=== PATIENT | female | born 1965 | race Caucasian/White ===

== ENCOUNTER 2018-12-25 12:12 | Outpatient (CLI) | payer OTHER ==
--- NOTE | 2018-12-25 13:10 | CT ---
NONCONTRAST ENHANCED CT CHEST LOW DOSE LUNG SCREENING SCAN: HISTORY: 53-year-old with 45 pack-year history of smoking. Comparison made to previous exam from 02/24/2014. Low dose CT chest scan performed. FINDINGS: Pleural-based nodular densities seen in the lateral aspect of the right lower lobe, axial image #180, as well as in the left lower lobe, axial image #166, and third lesion in the left lower lobe, axial image #176. The largest of these lesions has a diameter of approximately 12 mm. This is stable and unchanged sinc e previous exam from February 2014. Findings compatible with likely benign lesion. Findings suggest Lung-RADS category 2. Continue with annual screening low dose CT in 12 months. IMPRESSION: Lung-RADS category 2. 12 mm lesion stable for 2 years. Transcribed Date/Time: 12/25/2018 1:15 PM
== END 2018-12-25 12:13 | disposition home or self-care (01) ==
LOC: CT 12:12
PROVIDERS: ATTEND Internal Medicine Medical Oncology
DX: Z87.891 Personal history of nicotine dependence (principal); R91.1 Solitary pulmonary nodule
CPT/HCPCS: G0297

== ENCOUNTER 2022-08-05 16:34 | Inpatient (IN) | payer OTHER ==
[2022-08-05] MEDS ORDERED: Ondansetron ODT 4 MG TAB PO PRN (20:56)
[2022-08-05] MEDS ORDERED: Acetaminophen 325 MG TAB PO PRN (20:56)
[2022-08-05] MEDS ORDERED: HYDROcodone/Acetaminophen 5/325 mg Tablet PO PRN (20:56)
[2022-08-05] MEDS ORDERED: Dextrose 5% in Water 1,000 ML IV PRN (20:56)
[2022-08-05] MEDS ORDERED: Ondansetron PF 4 MG/2 ML Vial IVP PRN (20:56)
[2022-08-05] MEDS ORDERED: Dextrose 50% Abboject 50 ML SYRINGE SLOW IVP PRN (20:56)
[2022-08-05] MEDS ORDERED: HumaLOG 300 UNITS/3 ML VIAL SC PRN ×2 (21:00)
[2022-08-05] MEDS ORDERED: Ipratropium/Albuterol 3 ML NEB NEB PRN (21:01)
[2022-08-05] MEDS ORDERED: Benzonatate 100 MG CAP PO PRN (21:45)
[2022-08-05] MEDS ORDERED: GUAIFENESIN SF SOLN 200 MG/10 ML UDCUP PO PRN (21:45)
[2022-08-05] MEDS ORDERED: Magnesium 2 GM/50 ML(in water) 2 GM in Premix Bag 1 BAG IVPB SCH (22:00)
[2022-08-05 23:11] VITALS: BMI 29.2
[2022-08-05] MEDS: Azithromycin 500 MG in Sodium Chloride 0.9% 250 ML 250 ML IVPB SCH (23:21)
[2022-08-05] MEDS: methylPREDNISolone Sod Succ 40 MG VIAL IVP SCH (23:24)
[2022-08-05] MEDS: Nicotine 14 MG PATCH TD SCH (23:25)
[2022-08-05 23:55] LABS: Lactic Acid 3.7 mmol/L (0.5-2.2)
[2022-08-06 00:01] LABS: ALT (SGPT) 9 U/L (8-55); AST (SGOT) 15 U/L (5-34); Albumin 2.4 g/dL (3.5-5.0); Alkaline Phosphatase 64 U/L (40-110); Anion Gap 23 mmol/L (10-20); BUN (Urea Nitrogen) 35 mg/dL (9.8-20.1); Bilirubin, Total 0.5 mg/dL (0.2-1.2); Calc. Creatinine Clearance 51 mL/min (70-130); Calcium 12.1 mg/dL (7.8-10.44); Carbon Dioxide 29 mmol/L (22-29); Chloride 83 mmol/L (98-107); Estimated GFR 41; Globulin 7.8 g/dL (2.4-3.5); Glucose 222 mg/dL (70-105); Potassium 3.4 mmol/L (3.5-5.1); Protein, Total 10.2 g/dL (6.0-8.3); Sodium 132 mmol/L (136-145)
[2022-08-06] MEDS: methylPREDNISolone Sod Succ 40 MG VIAL IVP SCH ×3 (05:34→21:20)
[2022-08-06 05:49] LABS: #Lymphocytes 0.8 thou/uL (1.20-3.40); #Monocytes 0.2 thou/uL (0.11-0.59); #Neutrophils 7.8 thou/uL (1.40-6.50); %Eosinophils 0.1 % (0.0-10.0); %Lymphocytes 9.4 % (21.0-51.0); %Monocytes 2.7 % (0.0-10.0); %Neutrophils 87.8 % (42.0-75.0); Hemoglobin 12.4 g/dL (12.0-16.0); Mean Corpuscular HGB CONC 33.3 g/dL (32.0-36.0); Mean Corpuscular Hemoglobin 30.6 pg (27.0-31.0); Mean Corpuscular Volume 91.8 fl (78.0-98.0); Mean Platelet Volume 8.9 fL (7.4-10.4); Platelet Count 166 10x3/uL (130-400); Red Blood Cell (RBC) Count 4.04 mill/uL (4.20-5.40); White Blood Cell (WBC) Count 8.8 10x3/uL (4.8-10.8)
[2022-08-06 06:07] LABS: ALT (SGPT) Less than 7 U/L (8-55); AST (SGOT) 16 U/L (5-34); Albumin 2.5 g/dL (3.5-5.0); Alkaline Phosphatase 66 U/L (40-110); Anion Gap 20 mmol/L (10-20); BUN (Urea Nitrogen) 32 mg/dL (9.8-20.1); Bilirubin, Total 0.5 mg/dL (0.2-1.2); Calc. Creatinine Clearance 60 mL/min (70-130); Calcium 11.8 mg/dL (7.8-10.44); Carbon Dioxide 29 mmol/L (22-29); Chloride 86 mmol/L (98-107); Estimated GFR 49; Globulin 7.7 g/dL (2.4-3.5); Glucose 161 mg/dL (70-105); Potassium 3.3 mmol/L (3.5-5.1); Protein, Total 10.2 g/dL (6.0-8.3); Sodium 132 mmol/L (136-145)
[2022-08-06] MEDS ORDERED: Furosemide 40 MG TAB PO SCH (15:00)
[2022-08-06] MEDS ORDERED: Polyethylene Glycol 3350 17 GM Packet PO PRN (17:58)
[2022-08-06] MEDS: Senokot S 8.6-50 MG TAB PO SCH (21:20)
[2022-08-06] MEDS: hydrALAZINE 25 MG TAB PO SCH (21:21)
[2022-08-06] MEDS: carBAMazepine SR 300 mg Capsule PO SCH (21:21)
[2022-08-06] MEDS: Azithromycin 500 MG in Sodium Chloride 0.9% 250 ML 250 ML IVPB SCH (21:24)
[2022-08-06] MEDS: Furosemide 40 MG TAB PO SCH (21:34)
[2022-08-06] MEDS: Nicotine 14 MG PATCH TD SCH (21:34)
[2022-08-07] MEDS ORDERED: Mometasone 100 MCG/Formoterol 5 MCG 120 PUFF INHALER INH SCH (06:30)
[2022-08-07] MEDS ORDERED: Empagliflozin 25 MG TAB PO SCH (07:30)
[2022-08-07] MEDS: hydrALAZINE 25 MG TAB PO SCH (08:40)
[2022-08-07] MEDS: carBAMazepine SR 300 mg Capsule PO SCH (08:40)
[2022-08-07] MEDS: Furosemide 40 MG TAB PO SCH (08:41)
[2022-08-07] MEDS: Senokot S 8.6-50 MG TAB PO SCH (08:41)
[2022-08-07] MEDS: methylPREDNISolone Sod Succ 40 MG VIAL IVP SCH (08:42)
[2022-08-07 08:43] VITALS: BP 131/69
[2022-08-07] MEDS ORDERED: Venlafaxine HCl XR 75 MG CAP PO SCH (09:00)
[2022-08-07] MEDS ORDERED: Potassium Chloride 20 MEQ TAB PO SCH (09:00)
[2022-08-07 09:13] VITALS: TEMP 98.1
== END 2022-08-07 11:29 | disposition home or self-care (01) | DRG 189 ==
LOC: SURG B 16:34 → OBSVTOIN 08-06 15:13
PROVIDERS: ADMIT Internal Medicine; ATTEND Family Medicine
DX: J96.01 Acute respiratory failure with hypoxia (principal); J44.1 Chronic obstructive pulmonary disease with (acute) exacerbation; E87.20 Acidosis, unspecified; I50.32 Chronic diastolic (congestive) heart failure; N17.9 Acute kidney failure, unspecified; E11.9 Type 2 diabetes mellitus without complications; F31.9 Bipolar disorder, unspecified; F17.210 Nicotine dependence, cigarettes, uncomplicated; E87.6 Hypokalemia; I11.0 Hypertensive heart disease with heart failure; E78.5 Hyperlipidemia, unspecified; K21.9 Gastro-esophageal reflux disease without esophagitis; Z20.822 Contact with and (suspected) exposure to COVID-19; Z79.51 Long term (current) use of inhaled steroids; Z79.899 Other long term (current) drug therapy; Z98.890 Other specified postprocedural states; Z90.49 Acquired absence of other specified parts of digestive tract; Z88.0 Allergy status to penicillin; Z90.710 Acquired absence of both cervix and uterus
CPT/HCPCS: 36415; 36416; 80053; 83605; 85025; 96372; 96375; 96376; G0378; J0456; J1650; J2920; J3475; J7050

== ENCOUNTER 2022-11-07 20:49 | Observation (INO) | payer OTHER ==
[2022-11-07] MEDS ORDERED: Dextrose 5% in Water 1,000 ML IV PRN (22:25)
[2022-11-07] MEDS ORDERED: Dextrose 50% Abboject 50 ML SYRINGE SLOW IVP PRN (22:25)
[2022-11-07] MEDS ORDERED: Bisacodyl 5 MG TAB PO PRN (22:25)
[2022-11-07] MEDS ORDERED: Bisacodyl 10 MG SUPP PR PRN (22:25)
[2022-11-07] MEDS ORDERED: HumaLOG 300 UNITS/3 ML VIAL SC PRN ×2 (22:27)
[2022-11-07] MEDS ORDERED: Ipratropium/Albuterol 3 ML NEB NEB PRN (22:30)
[2022-11-07] MEDS ORDERED: Albuterol 200 PUFF (6.7GM INHALER) INH PRN (22:37)
[2022-11-08 01:42] LABS: Hemoglobin 6.9 g/dL (12.0-16.0); Platelet Count 129 10x3/uL (130-400)
[2022-11-08 01:59] LABS: ALT (SGPT) Less than 7 U/L (8-55); AST (SGOT) 16 U/L (5-34); Albumin 1.7 g/dL (3.5-5.0); Alkaline Phosphatase 166 U/L (40-110); Bilirubin, Direct 0.9 mg/dL (0.1-0.3); Bilirubin, Total 1.1 mg/dL (0.2-1.2); Protein, Total 10.3 g/dL (6.0-8.3)
[2022-11-08] MEDS: Acetaminophen 325 MG TAB PO PRN ×2 (02:38→07:59)
[2022-11-08] MEDS ORDERED: Gabapentin 100 MG CAP PO SCH (05:30)
[2022-11-08 08:26] LABS: INR-International Normal Ratio 1.8
[2022-11-08 08:27] LABS: PTT 42.9 sec (22.9-36.1)
[2022-11-08 08:31] LABS: Anion Gap 22 mmol/L (10-20); BUN (Urea Nitrogen) 29 mg/dL (9.8-20.1); Calc. Creatinine Clearance 18 mL/min (70-130); Carbon Dioxide 26 mmol/L (22-29); Chloride 87 mmol/L (98-107); Estimated GFR 12; Glucose 108 mg/dL (70-105); Potassium 3.8 mmol/L (3.5-5.1); Sodium 131 mmol/L (136-145)
[2022-11-08 08:39] LABS: Hemoglobin 6.4 g/dL (12.0-16.0); Mean Corpuscular Hemoglobin 32.2 pg (27.0-31.0); Mean Corpuscular Volume 97.8 fl (78.0-98.0); Mean Platelet Volume 7.8 fL (7.4-10.4); Platelet Count 133 10x3/uL (130-400); RBC Distribution Width 19.1 % (11.5-14.5); Red Blood Cell (RBC) Count 1.98 mill/uL (4.20-5.40); White Blood Cell (WBC) Count 4.3 10x3/uL (4.8-10.8)
[2022-11-08 08:47] LABS: HBSAB Concentration Less than 8.00 mIU/mL; HBSAg Index 0.25 S/CO (0-0.99); Hep B Core Total Ab Non-Reactive (NonReactive); Hep B Surf AB Non-Reactive (NonReactive); Hep B Surf Ag Non-Reactive S/CO (NonReactive); Hep C IgG Ab Non-Reactive S/CO (NonReactive); Hep C Index 0.03 S/CO (0-0.79)
[2022-11-08 08:48] LABS: Hep B Core Total Index 0.02 S/CO (0-0.79)
[2022-11-08] MEDS ORDERED: Senokot S 8.6-50 MG TAB PO SCH (09:00)
[2022-11-08] MEDS ORDERED: Metoprolol Tartrate 25 MG TAB PO SCH (09:00)
[2022-11-08 09:07] LABS: Band 19 % (5-11); Differential Comment Plasma-cytoid Cells; Eosinophils 1 % (0-10); Lymphocytes 18 % (21-51); MDiff Complete? YES; Monocytes 7 % (0-10); Neutrophil 51 % (42-75); Nucleated RBC (Manual Ct) 4 % (0); Other Cell Types 2; Platelet Morphology Comment Appears Adequate; Reactive Lymphocytes 2 % (0-10); Reflex for Review?? YES; Rouleaux Formation MODERATE= 6-15 cells (100X) (None Seen)
[2022-11-08] MEDS ORDERED: EPOETIN ALFA-EPBX (ESRD) 10,000 UNITS/ML VIAL IVP SCH (12:30)
[2022-11-08 13:15] LABS: Hemoglobin 7.6 g/dL (12.0-16.0); Platelet Count 130 10x3/uL (130-400)
[2022-11-08 15:45] VITALS: BP 112/56; TEMP 97.7
== END 2022-11-08 16:22 | disposition home or self-care (01) ==
LOC: 2SW 21:24
PROVIDERS: ADMIT Emergency Medicine; ATTEND Emergency Medicine
DX: I12.0 Hypertensive chronic kidney disease with stage 5 chronic kidney disease or end stage renal disease (principal); E11.22 Type 2 diabetes mellitus with diabetic chronic kidney disease; N18.6 End stage renal disease; D63.1 Anemia in chronic kidney disease; J44.9 Chronic obstructive pulmonary disease, unspecified; G47.33 Obstructive sleep apnea (adult) (pediatric); E78.5 Hyperlipidemia, unspecified; F17.210 Nicotine dependence, cigarettes, uncomplicated; D68.9 Coagulation defect, unspecified; Z79.01 Long term (current) use of anticoagulants; Z79.899 Other long term (current) drug therapy; Z88.0 Allergy status to penicillin; Z99.2 Dependence on renal dialysis
CPT/HCPCS: 36415; 36416; 36430; 80048; 80076; 85014; 85018; 85025; 85049; 85060; 85610; 85730; 86704; 86850; 86900; 86901; 86921; 90935; G0257; G0378; P9016

== ENCOUNTER 2022-11-14 13:05 | Inpatient (IN) | payer OTHER ==
[2022-11-14 16:07] LABS: CKMB 0.7 ng/mL (0-6.6)
[2022-11-14 17:52] VITALS: BMI 30.6
[2022-11-14] MEDS ORDERED: Dextrose 5% in Water 1,000 ML IV PRN (18:00)
[2022-11-14] MEDS ORDERED: Senokot S 8.6-50 MG TAB PO PRN (18:00)
[2022-11-14] MEDS ORDERED: Guaifenesin DM 100-10/5 ML UDCUP PO PRN (18:00)
[2022-11-14] MEDS ORDERED: Ondansetron ODT 4 MG TAB PO PRN (18:00)
[2022-11-14] MEDS ORDERED: Acetaminophen 325 MG TAB PO PRN (18:00)
[2022-11-14] MEDS ORDERED: Acetaminophen 650 MG Suppository PR PRN (18:00)
[2022-11-14] MEDS ORDERED: Dextrose 50% Abboject 50 ML SYRINGE SLOW IVP PRN (18:00)
[2022-11-14] MEDS ORDERED: Ipratropium/Albuterol 3 ML NEB NEB PRN (18:00)
[2022-11-14] MEDS ORDERED: Ondansetron PF 4 MG/2 ML Vial IVP PRN (18:00)
[2022-11-14] MEDS ORDERED: Vancomycin HCl 500 MG in Sodium Chloride 0.9% 100 ML IVPB SCH (19:00)
[2022-11-14] MEDS ORDERED: Vancomycin Hemodialysis Sliding Scale FS SCH (19:00)
[2022-11-14 19:11] LABS: Critical Call Chem Troponin I RESULT DECREASING; Troponin I 0.226 ng/mL (< 0.028)
[2022-11-14] MEDS: Famotidine 20 MG TAB PO SCH (20:38)
[2022-11-14] MEDS: Metoprolol Tartrate 25 MG TAB PO SCH (20:38)
[2022-11-14] MEDS ORDERED: Apixaban 5 MG TAB PO SCH (21:00)
[2022-11-14 21:01] LABS: Critical Call Chem Troponin I RESULT DECREASING; Troponin I 0.209 ng/mL (< 0.028)
[2022-11-14] MEDS ORDERED: Albumin 25% 25 GM/100 ML BOT IVPB SCH (21:45)
[2022-11-15 04:59] LABS: Anion Gap 23 mmol/L (10-20); BUN (Urea Nitrogen) 13 mg/dL (9.8-20.1); Calc. Creatinine Clearance 33 mL/min (70-130); Calcium 9.2 mg/dL (7.8-10.44); Carbon Dioxide 21 mmol/L (22-29); Chloride 92 mmol/L (98-107); Estimated GFR 23; Glucose 111 mg/dL (70-105); Potassium 3.9 mmol/L (3.5-5.1); Sodium 132 mmol/L (136-145)
[2022-11-15 05:13] LABS: #Monocytes 0.3 thou/uL (0.11-0.59); #Neutrophils 1.8 thou/uL (1.40-6.50); Hemoglobin 6.1 g/dL (12.0-16.0); Mean Corpuscular HGB CONC 30.9 g/dL (32.0-36.0); Mean Corpuscular Hemoglobin 30.9 pg (27.0-31.0); Mean Platelet Volume 8.9 fL (7.4-10.4); Platelet Count 59 10x3/uL (130-400); RBC Distribution Width 19.9 % (11.5-14.5); Red Blood Cell (RBC) Count 1.96 mill/uL (4.20-5.40); White Blood Cell (WBC) Count 3.3 10x3/uL (4.8-10.8)
[2022-11-15 05:14] LABS: Band 4 % (5-11); Eosinophils 1 % (0-10); Lymphocytes 26 % (21-51); MDiff Complete? YES; Monocytes 12 % (0-10); Neutrophil 55 % (42-75); Nucleated RBC (Manual Ct) 5 % (0); Platelet Morphology Comment Appears Decreased; Polychromasia SLIGHT = 2-3 cells (100X) (0-2/hpf); Reactive Lymphocytes 2 % (0-10); Rouleaux Formation SLIGHT = 1-5 cells (100X) (None Seen)
[2022-11-15 08:24] LABS: Vancomycin, Random 15.5 ug/mL (See Comment)
[2022-11-15] MEDS ORDERED: Heparin 10,000 UNITS/ 10 ML VIAL ONE (08:27)
[2022-11-15] MEDS: Metoprolol Tartrate 25 MG TAB PO SCH ×2 (08:45→21:39)
[2022-11-15] MEDS ORDERED: Vancomycin 1 GM in Premix Bag 1 BAG IVPB SCH (09:00)
[2022-11-15 14:38] LABS: Hemoglobin 8.2 g/dL (12.0-16.0)
[2022-11-15 16:33] LABS: Actual Bicarbonate (HCO3a) 30.6 mEq/L (22-28); CO2 Tension 50.8 mmHg (35.0-45.0); Calcium, Ionized (arterial) 1.26 mmol/L (1.12-1.30); Carboxyhemoglobin (COHb) 1.5 gm% (0.0-3.0); Hematocrit-ABG 27 % (36.0-47.0); Hemoglobin (Hb) 9.2 g/dL (12.0-16.0); O2 Tension (PaO2), arterial 78.3 mmHg (80.0-100.0); Potassium - ABG Lab 3.29 mmol/L (3.70-5.30); pH, Arterial 7.398 (7.35-7.45)
[2022-11-15 16:38] LABS: Puncture Site LRA
[2022-11-15] MEDS ORDERED: Vancomycin HCl 750 MG in Sodium Chloride 0.9% 250 ML 250 ML IVPB SCH (17:00)
[2022-11-15] MEDS: Cefepime 0.5 GM, Admixture Fee 1 EACH in Sodium Chloride 0.9% 100 ML IVPB SCH (17:17)
[2022-11-15] MEDS: Famotidine 20 MG TAB PO SCH (21:39)
[2022-11-15 22:39] LABS: Immunoglob - A (Total IgA) Greater than 6300.00 mg/dL (65-421)
[2022-11-16 05:12] LABS: Anion Gap 21 mmol/L (10-20); BUN (Urea Nitrogen) 12 mg/dL (9.8-20.1); Calc. Creatinine Clearance 34 mL/min (70-130); Calcium 10.2 mg/dL (7.8-10.44); Carbon Dioxide 23 mmol/L (22-29); Chloride 94 mmol/L (98-107); Estimated GFR 24; Glucose 134 mg/dL (70-105); Potassium 3.8 mmol/L (3.5-5.1); Sodium 134 mmol/L (136-145)
[2022-11-16 08:39] LABS: Band 8 % (5-11); Eosinophils 2 % (0-10); Hemoglobin 7.6 g/dL (12.0-16.0); Lymphocytes 26 % (21-51); MDiff Complete? YES; Mean Corpuscular HGB CONC 30.1 g/dL (32.0-36.0); Mean Corpuscular Hemoglobin 29.3 pg (27.0-31.0); Mean Corpuscular Volume 97.4 fl (78.0-98.0); Mean Platelet Volume 9.3 fL (7.4-10.4); Monocytes 8 % (0-10); Neutrophil 52 % (42-75); Nucleated RBC (Manual Ct) 4 % (0); Platelet Count 66 10x3/uL (130-400); Platelet Morphology Comment Appears Decreased; Polychromasia SLIGHT = 2-3 cells (100X) (0-2/hpf); RBC Distribution Width 23.3 % (11.5-14.5); Reactive Lymphocytes 2 % (0-10); Red Blood Cell (RBC) Count 2.59 mill/uL (4.20-5.40); Rouleaux Formation MARKED = >16 cells (100X) (None Seen); White Blood Cell (WBC) Count 3.2 10x3/uL (4.8-10.8)
[2022-11-16] MEDS ORDERED: Dexamethasone 40 MG in Sodium Chloride 0.9% 50 ML IVPB SCH (09:00)
[2022-11-16] MEDS: Metoprolol Tartrate 25 MG TAB PO SCH ×2 (09:05→20:24)
[2022-11-16] MEDS: HumaLOG 300 UNITS/3 ML VIAL SC PRN ×3 (12:02→21:17)
[2022-11-16] MEDS: Cefepime 0.5 GM, Admixture Fee 1 EACH in Sodium Chloride 0.9% 100 ML IVPB SCH (16:50)
[2022-11-16] MEDS: Famotidine 20 MG TAB PO SCH (20:24)
[2022-11-17] MEDS: HumaLOG 300 UNITS/3 ML VIAL SC PRN ×2 (06:05→20:18)
[2022-11-17 07:41] LABS: Vancomycin, Random 17.8 ug/mL (See Comment)
[2022-11-17 08:51] LABS: #Monocytes 0.4 thou/uL (0.11-0.59); #Neutrophils 3.5 thou/uL (1.40-6.50); %Basophils 0.6 % (0.0-1.0); %Eosinophils 0.1 % (0.0-10.0); %Lymphocytes 19.9 % (21.0-51.0); %Monocytes 8.9 % (0.0-10.0); %Neutrophils 70.5 % (42.0-75.0); Hemoglobin 8.6 g/dL (12.0-16.0); Mean Corpuscular Hemoglobin 32.4 pg (27.0-31.0); Mean Corpuscular Volume 98.1 fl (78.0-98.0); Mean Platelet Volume 9.8 fL (7.4-10.4); Platelet Count 59 10x3/uL (130-400); RBC Distribution Width 22.4 % (11.5-14.5); Red Blood Cell (RBC) Count 2.66 mill/uL (4.20-5.40); White Blood Cell (WBC) Count 4.9 10x3/uL (4.8-10.8)
[2022-11-17 09:20] LABS: ALT (SGPT) 8 U/L (8-55); AST (SGOT) 12 U/L (5-34); Albumin 1.8 g/dL (3.5-5.0); Alkaline Phosphatase 171 U/L (40-110); Anion Gap 22 mmol/L (10-20); BUN (Urea Nitrogen) 28 mg/dL (9.8-20.1); Bilirubin, Total 1.3 mg/dL (0.2-1.2); Calc. Creatinine Clearance 21 mL/min (70-130); Calcium 10.6 mg/dL (7.8-10.44); Carbon Dioxide 21 mmol/L (22-29); Chloride 89 mmol/L (98-107); Estimated GFR 14; Globulin 8.7 g/dL (2.4-3.5); Glucose 197 mg/dL (70-105); Potassium 4.3 mmol/L (3.5-5.1); Protein, Total 10.5 g/dL (6.0-8.3); Sodium 128 mmol/L (136-145)
[2022-11-17 09:29] LABS: MDiff Complete? YES; Macrocytosis SLIGHT = 6-15 cells (100X) (0-5/hpf); Platelet Morphology Comment Appears Decreased; Polychromasia SLIGHT = 2-3 cells (100X) (0-2/hpf); Rouleaux Formation MARKED = >16 cells (100X) (None Seen)
[2022-11-17] MEDS ORDERED: Vancomycin Diaylsis Sliding Scale (Wt 71-99) FS SCH (11:15)
[2022-11-17] MEDS: Dexamethasone 40 MG in Sodium Chloride 0.9% 50 ML IVPB SCH (15:11)
[2022-11-17] MEDS: Metoprolol Tartrate 25 MG TAB PO SCH ×2 (15:11→20:15)
[2022-11-17 16:38] LABS: Kappa Light Chains 10.8 mg/L (3.3-19.4); Lambda Light Chain 2891.3 mg/L (5.7-26.3)
[2022-11-17] MEDS ORDERED: Vancomycin HCl 750 MG in Sodium Chloride 0.9% 250 ML 250 ML IVPB SCH (17:00)
[2022-11-17] MEDS: Cefepime 0.5 GM, Admixture Fee 1 EACH in Sodium Chloride 0.9% 100 ML IVPB SCH (17:55)
[2022-11-17] MEDS: Famotidine 20 MG TAB PO SCH (20:15)
[2022-11-17 23:32] LABS: Hemoglobin 8.5 g/dL (12.0-16.0); Mean Corpuscular HGB CONC 33.4 g/dL (32.0-36.0); Mean Corpuscular Hemoglobin 32.6 pg (27.0-31.0); Mean Corpuscular Volume 97.6 fl (78.0-98.0); Mean Platelet Volume 8.9 fL (7.4-10.4); Platelet Count 64 10x3/uL (130-400); RBC Distribution Width 22.4 % (11.5-14.5); Red Blood Cell (RBC) Count 2.61 mill/uL (4.20-5.40)
[2022-11-17 23:53] LABS: Anisocytosis MODERATE=16-30 cells (100X) (0-5/hpf); Lymphocytes 12 % (21-51); MDiff Complete? YES; Metamyelocyte 1 % (0-0); Monocytes 3 % (0-10); Neutrophil 84 % (42-75); Nucleated RBC (Manual Ct) 2 % (0); Platelet Morphology Comment Appears Decreased; Polychromasia SLIGHT = 2-3 cells (100X) (0-2/hpf); White Blood Cell (WBC) Count 4.5 10x3/uL (4.8-10.8)
[2022-11-17 23:55] LABS: ALT (SGPT) 8 U/L (8-55); AST (SGOT) 13 U/L (5-34); Albumin 1.9 g/dL (3.5-5.0); Alkaline Phosphatase 166 U/L (40-110); Anion Gap 21 mmol/L (10-20); BUN (Urea Nitrogen) 19 mg/dL (9.8-20.1); Bilirubin, Total 1.2 mg/dL (0.2-1.2); Calc. Creatinine Clearance 28 mL/min (70-130); Carbon Dioxide 23 mmol/L (22-29); Chloride 91 mmol/L (98-107); Estimated GFR 19; Globulin 8.9 g/dL (2.4-3.5); Glucose 262 mg/dL (70-105); Potassium 4.4 mmol/L (3.5-5.1); Protein, Total 10.8 g/dL (6.0-8.3); Sodium 131 mmol/L (136-145)
[2022-11-18 05:03] LABS: ALT (SGPT) 9 U/L (8-55); AST (SGOT) 12 U/L (5-34); Albumin 1.8 g/dL (3.5-5.0); Alkaline Phosphatase 158 U/L (40-110); Anion Gap 19 mmol/L (10-20); BUN (Urea Nitrogen) 22 mg/dL (9.8-20.1); Bilirubin, Total 1.1 mg/dL (0.2-1.2); Calc. Creatinine Clearance 26 mL/min (70-130); Calcium 10.1 mg/dL (7.8-10.44); Carbon Dioxide 24 mmol/L (22-29); Chloride 91 mmol/L (98-107); Estimated GFR 18; Globulin 8.7 g/dL (2.4-3.5); Glucose 268 mg/dL (70-105); Potassium 4.3 mmol/L (3.5-5.1); Protein, Total 10.5 g/dL (6.0-8.3); Sodium 130 mmol/L (136-145)
[2022-11-18 05:32] LABS: Hemoglobin 7.9 g/dL (12.0-16.0); Mean Corpuscular HGB CONC 30.2 g/dL (32.0-36.0); Mean Corpuscular Hemoglobin 29.9 pg (27.0-31.0); Mean Corpuscular Volume 99.1 fl (78.0-98.0); Mean Platelet Volume 9.2 fL (7.4-10.4); Platelet Count 57 10x3/uL (130-400); RBC Distribution Width 22.3 % (11.5-14.5); Red Blood Cell (RBC) Count 2.63 mill/uL (4.20-5.40)
[2022-11-18] MEDS: HumaLOG 300 UNITS/3 ML VIAL SC PRN ×3 (05:38→21:07)
[2022-11-18 08:09] LABS: Anisocytosis SLIGHT = 6-15 cells (100X) (0-5/hpf); Band 15 % (5-11); Hypochromia SLIGHT = 6-15 cells (100X) (0-5/hpf); Lymphocytes 13 % (21-51); MDiff Complete? YES; Monocytes 6 % (0-10); Neutrophil 63 % (42-75); Nucleated RBC (Manual Ct) 1 % (0); Platelet Morphology Comment Appears Decreased; Polychromasia SLIGHT = 2-3 cells (100X) (0-2/hpf); Reactive Lymphocytes 3 % (0-10); Rouleaux Formation MARKED = >16 cells (100X) (None Seen); White Blood Cell (WBC) Count 5.4 10x3/uL (4.8-10.8)
[2022-11-18] MEDS: Metoprolol Tartrate 25 MG TAB PO SCH ×2 (09:14→21:07)
[2022-11-18] MEDS: Dexamethasone 40 MG in Sodium Chloride 0.9% 50 ML IVPB SCH (09:14)
[2022-11-18] MEDS: Cefepime 0.5 GM, Admixture Fee 1 EACH in Sodium Chloride 0.9% 100 ML IVPB SCH (16:35)
[2022-11-18] MEDS: Famotidine 20 MG TAB PO SCH (21:07)
[2022-11-19 05:15] LABS: #Lymphocytes 0.9 thou/uL (1.20-3.40); #Monocytes 0.5 thou/uL (0.11-0.59); #Neutrophils 5.2 thou/uL (1.40-6.50); %Eosinophils 0.1 % (0.0-10.0); %Lymphocytes 13.9 % (21.0-51.0); %Monocytes 7.5 % (0.0-10.0); %Neutrophils 78.5 % (42.0-75.0); Hemoglobin 8.8 g/dL (12.0-16.0); Mean Corpuscular HGB CONC 32.6 g/dL (32.0-36.0); Mean Corpuscular Hemoglobin 32.2 pg (27.0-31.0); Mean Corpuscular Volume 98.7 fl (78.0-98.0); Mean Platelet Volume 9.6 fL (7.4-10.4); Platelet Count 65 10x3/uL (130-400); RBC Distribution Width 22.1 % (11.5-14.5); Red Blood Cell (RBC) Count 2.72 mill/uL (4.20-5.40); White Blood Cell (WBC) Count 6.6 10x3/uL (4.8-10.8)
[2022-11-19] MEDS: HumaLOG 300 UNITS/3 ML VIAL SC PRN ×2 (06:39→18:06)
[2022-11-19] MEDS: Dexamethasone 40 MG in Sodium Chloride 0.9% 50 ML IVPB SCH (09:24)
[2022-11-19] MEDS: Metoprolol Tartrate 25 MG TAB PO SCH ×2 (09:24→20:05)
[2022-11-19 14:13] LABS: A/G Ratio 0.4 (0.7-1.7); Albumin 2.9 g/dL (2.9-4.4); Alpha 1 0.4 g/dL (0.0-0.4); Alpha 2 0.6 g/dL (0.4-1.0); Gamma 0.3 g/dL (0.4-1.8); Globulin, Total 7.3 g/dL (2.2-3.9); M-Spike 5.7 g/dL (Not Observed); Protein Electrophoresis Intrp Note: (.)
[2022-11-19] MEDS: Cefepime 0.5 GM, Admixture Fee 1 EACH in Sodium Chloride 0.9% 100 ML IVPB SCH (16:43)
[2022-11-19] MEDS: Famotidine 20 MG TAB PO SCH (20:05)
[2022-11-20] MEDS ORDERED: Nitroglycerin 0.4 MG TAB (25 Tab Bottle) SL PRN (00:31)
[2022-11-20 01:14] LABS: Troponin I 0.109 ng/mL (< 0.028)
[2022-11-20 05:08] LABS: #Monocytes 0.5 thou/uL (0.11-0.59); %Basophils 0.3 % (0.0-1.0); %Eosinophils 0.1 % (0.0-10.0); %Lymphocytes 13.4 % (21.0-51.0); %Monocytes 6.6 % (0.0-10.0); Hemoglobin 8.6 g/dL (12.0-16.0); Mean Corpuscular HGB CONC 30.6 g/dL (32.0-36.0); Mean Corpuscular Hemoglobin 29.6 pg (27.0-31.0); Mean Corpuscular Volume 96.6 fl (78.0-98.0); RBC Distribution Width 25.3 % (11.5-14.5); Red Blood Cell (RBC) Count 2.91 mill/uL (4.20-5.40); White Blood Cell (WBC) Count 6.8 10x3/uL (4.8-10.8)
[2022-11-20 05:16] LABS: Platelet Count 77 10x3/uL (130-400)
[2022-11-20 05:33] LABS: ALT (SGPT) 8 U/L (8-55); AST (SGOT) 14 U/L (5-34); Albumin 1.9 g/dL (3.5-5.0); Alkaline Phosphatase 130 U/L (40-110); Anion Gap 22 mmol/L (10-20); BUN (Urea Nitrogen) 51 mg/dL (9.8-20.1); Bilirubin, Total 1.2 mg/dL (0.2-1.2); Calc. Creatinine Clearance 17 mL/min (70-130); Calcium 10.5 mg/dL (7.8-10.44); Carbon Dioxide 23 mmol/L (22-29); Chloride 89 mmol/L (98-107); Estimated GFR 10; Globulin 8.9 g/dL (2.4-3.5); Glucose 167 mg/dL (70-105); Potassium 5.1 mmol/L (3.5-5.1); Protein, Total 10.8 g/dL (6.0-8.3); Sodium 129 mmol/L (136-145)
[2022-11-20] MEDS: HumaLOG 300 UNITS/3 ML VIAL SC PRN ×3 (06:25→20:25)
[2022-11-20] MEDS ORDERED: Albumin 25% 25 GM/100 ML BOT IVPB SCH (11:00)
[2022-11-20] MEDS ORDERED: EPOETIN ALFA-EPBX (ESRD) 10,000 UNITS/ML VIAL IVP SCH (11:00)
[2022-11-20] MEDS: Dexamethasone 40 MG in Sodium Chloride 0.9% 50 ML IVPB SCH (13:20)
[2022-11-20] MEDS: Metoprolol Tartrate 25 MG TAB PO SCH ×2 (13:20→20:25)
[2022-11-20] MEDS: Sodium Chloride 0.9% 1,000 ML IV SCH (14:17)
[2022-11-20] MEDS: cefTRIAXone\\ROCEPHIN 2 GM in Sodium Chloride 0.9% 100 ML IVPB SCH (16:36)
[2022-11-20] MEDS ORDERED: Vancomycin HCl 750 MG in Sodium Chloride 0.9% 250 ML 250 ML IVPB SCH (17:00)
[2022-11-20] MEDS: Acyclovir 200 mg Capsule PO SCH (20:25)
[2022-11-20] MEDS: Famotidine 20 MG TAB PO SCH (20:26)
[2022-11-21] MEDS: Sodium Chloride 0.9% 1,000 ML IV SCH ×3 (03:20→20:19)
[2022-11-21 05:13] LABS: #Monocytes 0.3 thou/uL (0.11-0.59); #Neutrophils 3.9 thou/uL (1.40-6.50); %Basophils 0.4 % (0.0-1.0); %Eosinophils 0.4 % (0.0-10.0); %Lymphocytes 12.9 % (21.0-51.0); %Neutrophils 78.1 % (42.0-75.0); Hemoglobin 8.3 g/dL (12.0-16.0); Mean Corpuscular HGB CONC 29.9 g/dL (32.0-36.0); Mean Corpuscular Hemoglobin 29.4 pg (27.0-31.0); Mean Corpuscular Volume 98.6 fl (78.0-98.0); Mean Platelet Volume 10.6 fL (7.4-10.4); RBC Distribution Width 25.5 % (11.5-14.5); Red Blood Cell (RBC) Count 2.82 mill/uL (4.20-5.40)
[2022-11-21 05:24] LABS: Manual Diff?? YES; Platelet Count 72 10x3/uL (130-400)
[2022-11-21] MEDS ORDERED: SODIUM CHLORIDE 0.9% IVPB SCH ×2 (06:00→07:00)
[2022-11-21] MEDS ORDERED: CYCLOPHOSPHAMIDE IVPB SCH ×2 (06:00→07:00)
[2022-11-21] MEDS: HumaLOG 300 UNITS/3 ML VIAL SC PRN ×2 (06:00→18:49)
[2022-11-21] MEDS ORDERED: Dexamethasone Sod Phosphate 40 MG in Sodium Chloride 0.9% 50 ML IVPB SCH ×2 (06:00→07:15)
[2022-11-21] MEDS ORDERED: Bortezomib 3.5 MG SDV VIAL SC SCH (06:00)
[2022-11-21] MEDS: Betamethasone 0.1% Cream 45 GM TUBE TOP SCH (09:58)
[2022-11-21] MEDS: Acyclovir 200 mg Capsule PO SCH ×2 (09:58→20:18)
[2022-11-21] MEDS: Metoprolol Tartrate 25 MG TAB PO SCH ×2 (09:58→20:19)
[2022-11-21] MEDS: cefTRIAXone\\ROCEPHIN 2 GM in Sodium Chloride 0.9% 100 ML IVPB SCH (17:35)
[2022-11-21] MEDS: Famotidine 20 MG TAB PO SCH (20:18)
[2022-11-22] MEDS: Sodium Chloride 0.9% 1,000 ML IV SCH ×2 (04:59→14:32)
[2022-11-22 05:08] LABS: Platelet Count 82 10x3/uL (130-400)
[2022-11-22 05:12] LABS: Prothrombin Time 23.4 sec (12.0-14.7)
[2022-11-22 05:13] LABS: PTT 39.1 sec (22.9-36.1)
[2022-11-22 05:15] LABS: D-Dimer Test 2.14 *mcg/mL (0.27-0.43)
[2022-11-22 05:18] LABS: ALT (SGPT) 11 U/L (8-55); AST (SGOT) 72 U/L (5-34); Alkaline Phosphatase 109 U/L (40-110); Anion Gap 23 mmol/L (10-20); BUN (Urea Nitrogen) 46 mg/dL (9.8-20.1); Bilirubin, Total 0.9 mg/dL (0.2-1.2); Calc. Creatinine Clearance 19 mL/min (70-130); Calcium 9.1 mg/dL (7.8-10.44); Carbon Dioxide 20 mmol/L (22-29); Chloride 93 mmol/L (98-107); Estimated GFR 12; Globulin 8.4 g/dL (2.4-3.5); Glucose 174 mg/dL (70-105); Protein, Total 10.4 g/dL (6.0-8.3); Sodium 131 mmol/L (136-145)
[2022-11-22 05:21] LABS: Fibrinogen 59 mg/dL (253-463)
[2022-11-22 05:36] LABS: #Monocytes 0.2 thou/uL (0.11-0.59); #Neutrophils 5.8 thou/uL (1.40-6.50); %Basophils 0.3 % (0.0-1.0); %Eosinophils 0.3 % (0.0-10.0); %Lymphocytes 5.3 % (21.0-51.0); %Monocytes 3.5 % (0.0-10.0); %Neutrophils 88.8 % (42.0-75.0); Hemoglobin 8.5 g/dL (12.0-16.0); Mean Corpuscular HGB CONC 30.2 g/dL (32.0-36.0); Mean Corpuscular Hemoglobin 29.8 pg (27.0-31.0); Mean Corpuscular Volume 98.6 fl (78.0-98.0); Mean Platelet Volume 10.7 fL (7.4-10.4); RBC Distribution Width 25.9 % (11.5-14.5); Red Blood Cell (RBC) Count 2.85 mill/uL (4.20-5.40); White Blood Cell (WBC) Count 6.6 10x3/uL (4.8-10.8)
[2022-11-22 05:59] LABS: Manual Diff?? YES; Platelet Count 74 10x3/uL (130-400)
[2022-11-22] MEDS: Betamethasone 0.1% Cream 45 GM TUBE TOP SCH (08:01)
[2022-11-22] MEDS: Acyclovir 200 mg Capsule PO SCH ×2 (08:02→20:17)
[2022-11-22] MEDS: Metoprolol Tartrate 25 MG TAB PO SCH ×2 (08:02→20:17)
[2022-11-22 09:37] LABS: Band 6 % (5-11); Lymphocytes 4 % (21-51); Metamyelocyte 1 % (0-0); Monocytes 1 % (0-10); Neutrophil 87 % (42-75); Nucleated RBC (Manual Ct) 1 % (0); Platelet Morphology Comment Appears Decreased; Polychromasia SLIGHT = 2-3 cells (100X) (0-2/hpf); Reactive Lymphocytes 1 % (0-10)
[2022-11-22 09:38] LABS: Rouleaux Formation MODERATE= 6-15 cells (100X) (None Seen)
[2022-11-22] MEDS: Famotidine 20 MG TAB PO SCH (20:18)
[2022-11-23 04:51] LABS: #Eosinphils 0.1 thou/uL (0.0-0.7); #Monocytes 0.2 thou/uL (0.11-0.59); #Neutrophils 3.7 thou/uL (1.40-6.50); %Eosinophils 1.9 % (0.0-10.0); %Lymphocytes 6.3 % (21.0-51.0); %Monocytes 5.1 % (0.0-10.0); %Neutrophils 85.8 % (42.0-75.0); Hemoglobin 8.2 g/dL (12.0-16.0); Mean Corpuscular HGB CONC 30.6 g/dL (32.0-36.0); Mean Corpuscular Hemoglobin 30.4 pg (27.0-31.0); Mean Corpuscular Volume 99.3 fl (78.0-98.0); Mean Platelet Volume 11.2 fL (7.4-10.4); RBC Distribution Width 26.2 % (11.5-14.5); White Blood Cell (WBC) Count 4.3 10x3/uL (4.8-10.8)
[2022-11-23 04:53] LABS: Platelet Count 73 10x3/uL (130-400)
[2022-11-23 05:05] LABS: INR-International Normal Ratio 1.6; Prothrombin Time 19.8 sec (12.0-14.7)
[2022-11-23 05:06] LABS: Fibrinogen 167 mg/dL (253-463); PTT 38.3 sec (22.9-36.1)
[2022-11-23 05:07] LABS: D-Dimer Test 1.92 *mcg/mL (0.27-0.43)
[2022-11-23 05:15] LABS: ALT (SGPT) 9 U/L (8-55); AST (SGOT) 57 U/L (5-34); Albumin 2.2 g/dL (3.5-5.0); Alkaline Phosphatase 110 U/L (40-110); Anion Gap 18 mmol/L (10-20); BUN (Urea Nitrogen) 33 mg/dL (9.8-20.1); Bilirubin, Total 0.8 mg/dL (0.2-1.2); Calc. Creatinine Clearance 24 mL/min (70-130); Calcium 8.5 mg/dL (7.8-10.44); Carbon Dioxide 25 mmol/L (22-29); Chloride 92 mmol/L (98-107); Estimated GFR 17; Glucose 148 mg/dL (70-105); Potassium 4.1 mmol/L (3.5-5.1); Protein, Total 10.2 g/dL (6.0-8.3); Sodium 131 mmol/L (136-145)
[2022-11-23 06:26] LABS: Platelet Count 71 10x3/uL (130-400)
[2022-11-23] MEDS: Lorazepam 2 MG/ML VIAL SLOW IVP PRN (08:20)
[2022-11-23] MEDS: Betamethasone 0.1% Cream 45 GM TUBE TOP SCH ×2 (08:21→08:36)
[2022-11-23] MEDS: Acyclovir 200 mg Capsule PO SCH ×3 (08:21→20:19)
[2022-11-23] MEDS: Metoprolol Tartrate 25 MG TAB PO SCH ×3 (08:21→20:18)
[2022-11-23] MEDS: Famotidine 20 MG TAB PO SCH (20:19)
[2022-11-24 06:01] LABS: Mean Corpuscular HGB CONC 30.3 g/dL (32.0-36.0); Mean Corpuscular Volume 98.9 fl (78.0-98.0); RBC Distribution Width 25.9 % (11.5-14.5); Red Blood Cell (RBC) Count 2.67 mill/uL (4.20-5.40); White Blood Cell (WBC) Count 4.2 10x3/uL (4.8-10.8)
[2022-11-24 06:12] LABS: Delete Auto Diff?? YES; Manual Diff?? YES; Platelet Count 68 10x3/uL (130-400)
[2022-11-24 06:16] LABS: Fibrinogen 160 mg/dL (253-463)
[2022-11-24 06:17] LABS: D-Dimer Test 1.43 *mcg/mL (0.27-0.43); INR-International Normal Ratio 1.5; PTT 41.5 sec (22.9-36.1); Prothrombin Time 18.4 sec (12.0-14.7)
[2022-11-24 06:22] LABS: ALT (SGPT) 7 U/L (8-55); AST (SGOT) 17 U/L (5-34); Alkaline Phosphatase 102 U/L (40-110); Anion Gap 17 mmol/L (10-20); BUN (Urea Nitrogen) 29 mg/dL (9.8-20.1); Bilirubin, Total 0.8 mg/dL (0.2-1.2); Calc. Creatinine Clearance 27 mL/min (70-130); Calcium 8.5 mg/dL (7.8-10.44); Carbon Dioxide 25 mmol/L (22-29); Chloride 95 mmol/L (98-107); Estimated GFR 19; Globulin 7.7 g/dL (2.4-3.5); Glucose 129 mg/dL (70-105); Protein, Total 9.7 g/dL (6.0-8.3); Sodium 133 mmol/L (136-145)
[2022-11-24 06:40] LABS: Platelet Count 68 10x3/uL (130-400)
[2022-11-24 06:42] LABS: Anisocytosis SLIGHT = 6-15 cells HPF (0-5); Band 11 % (5-11); Eosinophils 1 % (0-10); Hypochromia SLIGHT = 6-15 cells HPF (0-5); Lymphocytes 9 % (21-51); Monocytes 4 % (0-10); Neutrophil 75 % (42-75); Nucleated RBC (Manual Ct) 2 % (0); Platelet Morphology Comment Platelets Decreased; Polychromasia SLIGHT = 2-3 cells HPF (0-2); Total Cell Count 102
[2022-11-24] MEDS ORDERED: Heparin 10,000 UNITS/ 10 ML VIAL ONE (08:51)
[2022-11-24] MEDS: Lorazepam 2 MG/ML VIAL SLOW IVP PRN (08:52)
[2022-11-24] MEDS: Betamethasone 0.1% Cream 45 GM TUBE TOP SCH (08:52)
[2022-11-24] MEDS: Metoprolol Tartrate 25 MG TAB PO SCH ×2 (08:52→20:54)
[2022-11-24] MEDS: Acyclovir 200 mg Capsule PO SCH ×2 (08:52→20:54)
[2022-11-24] MEDS: HumaLOG 300 UNITS/3 ML VIAL SC PRN (17:02)
[2022-11-24] MEDS: Famotidine 20 MG TAB PO SCH (20:53)
[2022-11-25 06:36] LABS: #Eosinphils 0.1 thou/uL (0.0-0.7); #Monocytes 0.2 thou/uL (0.11-0.59); #Neutrophils 3.3 thou/uL (1.40-6.50); %Basophils 0.2 % (0.0-1.0); %Eosinophils 2.4 % (0.0-10.0); %Lymphocytes 10.3 % (21.0-51.0); %Monocytes 5.1 % (0.0-10.0); %Neutrophils 81.5 % (42.0-75.0); Hemoglobin 8.1 g/dL (12.0-16.0); Mean Corpuscular HGB CONC 30.7 g/dL (32.0-36.0); Mean Corpuscular Hemoglobin 30.8 pg (27.0-31.0); Mean Corpuscular Volume 100.4 fl (78.0-98.0); Mean Platelet Volume 10.3 fL (7.4-10.4); RBC Distribution Width 25.4 % (11.5-14.5); Red Blood Cell (RBC) Count 2.63 mill/uL (4.20-5.40); White Blood Cell (WBC) Count 4.1 10x3/uL (4.8-10.8)
[2022-11-25 06:38] LABS: Manual Diff?? YES; Platelet Count 58 10x3/uL (130-400)
[2022-11-25 06:40] LABS: Platelet Count 64 10x3/uL (130-400)
[2022-11-25 06:51] LABS: INR-International Normal Ratio 1.4; Prothrombin Time 17.9 sec (12.0-14.7)
[2022-11-25 06:52] LABS: D-Dimer Test 1.33 *mcg/mL (0.27-0.43)
[2022-11-25 06:55] LABS: Fibrinogen 158 mg/dL (253-463)
[2022-11-25 06:59] LABS: ALT (SGPT) 7 U/L (8-55); AST (SGOT) 14 U/L (5-34); Alkaline Phosphatase 106 U/L (40-110); Anion Gap 18 mmol/L (10-20); BUN (Urea Nitrogen) 26 mg/dL (9.8-20.1); Bilirubin, Total 0.9 mg/dL (0.2-1.2); Calc. Creatinine Clearance 32 mL/min (70-130); Calcium 8.6 mg/dL (7.8-10.44); Carbon Dioxide 25 mmol/L (22-29); Chloride 93 mmol/L (98-107); Estimated GFR 23; Globulin 7.7 g/dL (2.4-3.5); Glucose 134 mg/dL (70-105); Potassium 3.6 mmol/L (3.5-5.1); Protein, Total 9.7 g/dL (6.0-8.3); Sodium 132 mmol/L (136-145)
[2022-11-25 07:03] LABS: Anisocytosis MODERATE=16-30 cells HPF (0-5); Band 14 % (5-11); Eosinophils 2 % (0-10); Hypochromia SLIGHT = 6-15 cells HPF (0-5); Large Platelets 4.9 % (0-5); Lymphocytes 6 % (21-51); Macrocytosis SLIGHT = 6-15 cells HPF (0-5); Monocytes 1 % (0-10); Neutrophil 77 % (42-75); Nucleated RBC (Manual Ct) 1 % (0); Platelet Morphology Comment Platelets Decreased; Polychromasia SLIGHT = 2-3 cells HPF (0-2); Total Cell Count 103
[2022-11-25] MEDS: Betamethasone 0.1% Cream 45 GM TUBE TOP SCH (09:58)
[2022-11-25] MEDS: Metoprolol Tartrate 25 MG TAB PO SCH ×2 (09:58→20:38)
[2022-11-25] MEDS: Acyclovir 200 mg Capsule PO SCH ×2 (09:58→20:38)
[2022-11-25] MEDS ORDERED: Calcium Carbonate 500 MG ChewTAB PO PRN (14:39)
[2022-11-25] MEDS ORDERED: Pantoprazole 40 MG VIAL IVP SCH (14:45)
[2022-11-25 17:11] LABS: Troponin I 0.106 ng/mL (< 0.028)
[2022-11-25 19:49] LABS: Troponin I 0.111 ng/mL (< 0.028)
[2022-11-25 23:18] LABS: Troponin I 0.105 ng/mL (< 0.028)
[2022-11-26 05:50] LABS: #Eosinphils 0.1 thou/uL (0.0-0.7); #Monocytes 0.2 thou/uL (0.11-0.59); #Neutrophils 2.6 thou/uL (1.40-6.50); %Basophils 0.3 % (0.0-1.0); %Eosinophils 2.8 % (0.0-10.0); %Lymphocytes 16.1 % (21.0-51.0); %Monocytes 5.9 % (0.0-10.0); %Neutrophils 73.8 % (42.0-75.0); Hemoglobin 9.1 g/dL (12.0-16.0); Mean Corpuscular HGB CONC 30.5 g/dL (32.0-36.0); Mean Corpuscular Hemoglobin 29.9 pg (27.0-31.0); Mean Platelet Volume 11.1 fL (7.4-10.4); RBC Distribution Width 24.7 % (11.5-14.5); Red Blood Cell (RBC) Count 3.04 mill/uL (4.20-5.40); White Blood Cell (WBC) Count 3.5 10x3/uL (4.8-10.8)
[2022-11-26 06:03] LABS: Manual Diff?? NO; Platelet Count 65 10x3/uL (130-400)
[2022-11-26 06:04] LABS: Platelet Count 69 10x3/uL (130-400)
[2022-11-26 06:15] LABS: Fibrinogen 161 mg/dL (253-463)
[2022-11-26 06:16] LABS: INR-International Normal Ratio 1.4; PTT 40.4 sec (22.9-36.1); Prothrombin Time 17.5 sec (12.0-14.7)
[2022-11-26 06:17] LABS: D-Dimer Test 1.39 *mcg/mL (0.27-0.43)
[2022-11-26 07:19] LABS: ALT (SGPT) 7 U/L (8-55); AST (SGOT) 9 U/L (5-34); Alkaline Phosphatase 108 U/L (40-110); Anion Gap 19 mmol/L (10-20); BUN (Urea Nitrogen) 37 mg/dL (9.8-20.1); Calc. Creatinine Clearance 23 mL/min (70-130); Calcium 8.7 mg/dL (7.8-10.44); Carbon Dioxide 22 mmol/L (22-29); Chloride 92 mmol/L (98-107); Estimated GFR 16; Globulin 7.9 g/dL (2.4-3.5); Glucose 110 mg/dL (70-105); Potassium 3.9 mmol/L (3.5-5.1); Protein, Total 9.9 g/dL (6.0-8.3); Sodium 129 mmol/L (136-145)
[2022-11-26] MEDS: Betamethasone 0.1% Cream 45 GM TUBE TOP SCH (08:18)
[2022-11-26] MEDS: Metoprolol Tartrate 25 MG TAB PO SCH ×2 (08:19→21:03)
[2022-11-26] MEDS: Acyclovir 200 mg Capsule PO SCH ×2 (08:19→21:03)
[2022-11-26] MEDS ORDERED: Pantoprazole 40 MG VIAL IVP SCH (09:00)
[2022-11-27 05:24] LABS: #Eosinphils 0.1 thou/uL (0.0-0.7); #Monocytes 0.2 thou/uL (0.11-0.59); #Neutrophils 1.9 thou/uL (1.40-6.50); %Basophils 0.7 % (0.0-1.0); %Eosinophils 3.9 % (0.0-10.0); %Lymphocytes 18.7 % (21.0-51.0); %Monocytes 7.4 % (0.0-10.0); %Neutrophils 68.2 % (42.0-75.0); Hemoglobin 8.2 g/dL (12.0-16.0); Mean Corpuscular HGB CONC 30.7 g/dL (32.0-36.0); Mean Corpuscular Hemoglobin 29.7 pg (27.0-31.0); Mean Corpuscular Volume 96.7 fl (78.0-98.0); RBC Distribution Width 24.2 % (11.5-14.5); Red Blood Cell (RBC) Count 2.76 mill/uL (4.20-5.40); White Blood Cell (WBC) Count 2.8 10x3/uL (4.8-10.8)
[2022-11-27 05:34] LABS: Platelet Count 70 10x3/uL (130-400)
[2022-11-27 05:36] LABS: Platelet Count 68 10x3/uL (130-400)
[2022-11-27 05:38] LABS: INR-International Normal Ratio 1.4
[2022-11-27 05:39] LABS: D-Dimer Test 1.31 *mcg/mL (0.27-0.43)
[2022-11-27 05:41] LABS: ALT (SGPT) 7 U/L (8-55); AST (SGOT) 10 U/L (5-34); Alkaline Phosphatase 118 U/L (40-110); Anion Gap 17 mmol/L (10-20); BUN (Urea Nitrogen) 46 mg/dL (9.8-20.1); Bilirubin, Total 0.9 mg/dL (0.2-1.2); Calc. Creatinine Clearance 22 mL/min (70-130); Calcium 8.9 mg/dL (7.8-10.44); Carbon Dioxide 26 mmol/L (22-29); Chloride 91 mmol/L (98-107); Estimated GFR 15; Globulin 7.8 g/dL (2.4-3.5); Glucose 98 mg/dL (70-105); Potassium 3.9 mmol/L (3.5-5.1); Protein, Total 9.8 g/dL (6.0-8.3); Sodium 130 mmol/L (136-145)
[2022-11-27 05:42] LABS: Fibrinogen 155 mg/dL (253-463)
[2022-11-27] MEDS: Acyclovir 200 mg Capsule PO SCH ×2 (08:01→20:57)
[2022-11-27] MEDS: Betamethasone 0.1% Cream 45 GM TUBE TOP SCH (08:01)
[2022-11-27] MEDS: Metoprolol Tartrate 25 MG TAB PO SCH ×2 (08:01→20:57)
[2022-11-27] MEDS ORDERED: Melatonin 3 MG TAB PO PRN (18:32)
[2022-11-28] MEDS: Acyclovir 200 mg Capsule PO SCH (08:44)
[2022-11-28] MEDS: Metoprolol Tartrate 25 MG TAB PO SCH (08:45)
[2022-11-28] MEDS: Betamethasone 0.1% Cream 45 GM TUBE TOP SCH (08:45)
[2022-11-28] MEDS ORDERED: SODIUM CHLORIDE 0.9% IVPB SCH ×4 (13:00→14:15)
[2022-11-28] MEDS ORDERED: CYCLOPHOSPHAMIDE IVPB SCH ×4 (13:00→14:15)
[2022-11-28] MEDS ORDERED: Dexamethasone 40 MG in Sodium Chloride 0.9% 50 ML IVPB SCH (13:00)
[2022-11-28] MEDS ORDERED: Dexamethasone Sod Phosphate 40 MG in Sodium Chloride 0.9% 50 ML IVPB SCH (13:30)
[2022-11-28 16:39] VITALS: BP 157/77; TEMP 98.2
== END 2022-11-28 18:32 | disposition home or self-care (01) | DRG 840 ==
LOC: ERS 13:05 → 2NO 15:53 → MSONC 11-18 12:57
PROVIDERS: ADMIT Emergency Medicine; ATTEND Internal Medicine
PROC: 30233J1 Transfusion of Nonautologous Serum Albumin into Peripheral Vein, Percutaneous Approach (ICD-10-PCS; 2022-11-14)
PROC: 5A1D70Z Performance of Urinary Filtration, Intermittent, Less than 6 Hours Per Day (ICD-10-PCS; 2022-11-14)
PROC: 30233N1 Transfusion of Nonautologous Red Blood Cells into Peripheral Vein, Percutaneous Approach (ICD-10-PCS; 2022-11-15)
PROC: 4A033R1 Measurement of Arterial Saturation, Peripheral, Percutaneous Approach (ICD-10-PCS; 2022-11-15)
PROC: 30233M1 Transfusion of Nonautologous Plasma Cryoprecipitate into Peripheral Vein, Percutaneous Approach (ICD-10-PCS; principal; 2022-11-22)
DX: C90.00 Multiple myeloma not having achieved remission (principal); G93.41 Metabolic encephalopathy; I21.A1 Myocardial infarction type 2; N18.6 End stage renal disease; I12.0 Hypertensive chronic kidney disease with stage 5 chronic kidney disease or end stage renal disease; D61.818 Other pancytopenia; L03.115 Cellulitis of right lower limb; L03.116 Cellulitis of left lower limb; N39.0 Urinary tract infection, site not specified; C79.51 Secondary malignant neoplasm of bone; E87.1 Hypo-osmolality and hyponatremia; E87.20 Acidosis, unspecified; N25.81 Secondary hyperparathyroidism of renal origin; Z51.5 Encounter for palliative care; J44.9 Chronic obstructive pulmonary disease, unspecified; E11.22 Type 2 diabetes mellitus with diabetic chronic kidney disease; F31.9 Bipolar disorder, unspecified; F17.210 Nicotine dependence, cigarettes, uncomplicated; E78.00 Pure hypercholesterolemia, unspecified; E78.5 Hyperlipidemia, unspecified; B96.20 Unspecified Escherichia coli [E. coli] as the cause of diseases classified elsewhere; E87.70 Fluid overload, unspecified; R53.81 Other malaise; R07.9 Chest pain, unspecified; E87.5 Hyperkalemia; E66.9 Obesity, unspecified; Z68.27 Body mass index [BMI] 27.0-27.9, adult; Z88.0 Allergy status to penicillin; Z79.899 Other long term (current) drug therapy; Z79.51 Long term (current) use of inhaled steroids; Z90.710 Acquired absence of both cervix and uterus; Z98.41 Cataract extraction status, right eye; Z98.42 Cataract extraction status, left eye; Z90.49 Acquired absence of other specified parts of digestive tract; Z98.890 Other specified postprocedural states; Z99.2 Dependence on renal dialysis
CPT/HCPCS: 36415; 36416; 36430; 36600; 70450; 70551; 71045; 80048; 80053; 80202; 82140; 82553; 82805; 83615; 83883; 84155; 84165; 84484; 85025; 85049; 85300; 85362; 85379; 85384; 85610; 85730; 86850; 86900; 86901; 86921; 87081; 88184; 90935; 93005; 93010; 93970; 94640; 95816; 95819; 95957; 99285; C9113; G0257; J0692; J0696; J1100; J1644; J2060; J2405; J3370; J3490; J7050; J7620; J9041; J9070; P9012; P9016; P9047

== ENCOUNTER 2023-04-21 09:29 | Inpatient (IN) | payer OTHER ==
[2023-04-21 10:38] LABS: ALT (SGPT) 13 U/L (8-55); AST (SGOT) 14 U/L (5-34); Albumin 3.5 g/dL (3.5-5.0); Alkaline Phosphatase 120 U/L (40-110); Anion Gap 13 mmol/L (10-20); BUN (Urea Nitrogen) 23 mg/dL (9.8-20.1); Bilirubin, Total 0.7 mg/dL (0.2-1.2); Calc. Creatinine Clearance 0 mL/min (70-130); Carbon Dioxide 28 mmol/L (22-29); Chloride 91 mmol/L (98-107); Estimated GFR 51; Globulin 2.4 g/dL (2.4-3.5); Glucose 118 mg/dL (70-105); Potassium 4.8 mmol/L (3.5-5.1); Protein, Total 5.9 g/dL (6.0-8.3); Sodium 127 mmol/L (136-145)
[2023-04-21 10:41] LABS: Hemoglobin 9.8 g/dL (12.0-16.0); Manual Diff?? YES; Mean Corpuscular Hemoglobin 35.5 pg (27.0-31.0); Mean Corpuscular Volume 101.4 fl (78.0-98.0); Mean Platelet Volume 9.9 fL (7.4-10.4); Platelet Count 166 10x3/uL (130-400); RBC Distribution Width 15.7 % (11.5-14.5); Red Blood Cell (RBC) Count 2.76 mill/uL (4.20-5.40)
[2023-04-21 10:46] LABS: Delete Auto Diff?? YES
[2023-04-21 10:56] LABS: RBC Morphology YES
[2023-04-21] MEDS ORDERED: cefTRIAXone (ROCEPHIN) 2 GM VIAL ONE (11:21)
[2023-04-21] MEDS ORDERED: Azithromycin 500 MG VIAL ONE (11:22)
[2023-04-21 11:30] LABS: Band 2 % (5-11); Eosinophils 2 % (0-10); Lymphocytes 15 % (21-51); Monocytes 13 % (0-10); Neutrophil 68 % (42-75)
[2023-04-21 11:33] LABS: Platelet Adequacy Comment Appears Adequate
[2023-04-21 12:02] LABS: Bacteria/HPF None Seen HPF (None Seen); Bilirubin Negative (Negative); Blood, Urine Negative (Negative); CAUTI Indications for Culture Dysuria,urgency,freq; Clarity Clear (Clear); Glucose, Urine (Dipstick) Normal (Negative); Ketone, Urine Negative (Negative); Leukocyte Negative Leu/uL (Negative); Nitrite Negative (Negative); Protein, Urine (Dipstick) 20 mg/dL (Neg-Trace); RBC/HPF 0-3 HPF (0-3); Specific Gravity, Urine 1.009 (1.002-1.036); Squamous Epithelial 0-3 HPF (0-3); Urobilinogen Normal mg/dL (Less than 2); WBC/HPF 0-3 HPF (0-3)
[2023-04-21 12:03] LABS: Urine Culture Reflex No No
[2023-04-21] MEDS ORDERED: Acetaminophen 325 MG TAB PO PRN (12:20)
[2023-04-21] MEDS ORDERED: HYDROcodone/Acetaminophen 5/325 mg Tablet PO PRN (12:20)
[2023-04-21] MEDS ORDERED: Ondansetron PF 4 MG/2 ML Vial IVP PRN (12:20)
[2023-04-21] MEDS ORDERED: Dextrose 5% in Water 1,000 ML IV PRN (12:46)
[2023-04-21] MEDS ORDERED: Dextrose 50% Abboject 50 ML SYRINGE SLOW IVP PRN (12:46)
[2023-04-21] MEDS ORDERED: Glucagon 1 MG/ML KIT IM PRN (12:46)
[2023-04-21] MEDS ORDERED: HumaLOG 300 UNITS/3 ML VIAL SC PRN (12:46)
[2023-04-21] MEDS ORDERED: Ipratropium/Albuterol 3 ML NEB ONE (13:29)
[2023-04-21] MEDS ORDERED: Furosemide 40 MG/4 ML VIAL ONE (13:39)
[2023-04-21] MEDS ORDERED: Ipratropium/Albuterol 3 ML NEB NEB SCH ×2 (14:30→15:00)
[2023-04-21] MEDS ORDERED: Albumin 25% 25 GM/100 ML BOT IVPB SCH (15:00)
[2023-04-21] MEDS ORDERED: VANCOMYCIN IVPB PRN (15:00)
[2023-04-21 15:46] VITALS: BMI 28.1
[2023-04-21] MEDS: Ipratropium/Albuterol 3 ML NEB NEB SCH (18:47)
[2023-04-21] MEDS: Cefepime 1 GM in Sodium Chloride 0.9% 100 ML IVPB SCH (19:17)
[2023-04-21] MEDS: Vancomycin 1.5 GRAM/300 ML BAG 1.5 GM in Premix Bag 1 BAG IVPB SCH (20:05)
[2023-04-21] MEDS: Famotidine/PF 20 mg/2ml Vial SLOW IVP SCH (20:39)
[2023-04-21] MEDS: Apixaban 5 MG TAB PO SCH (20:39)
[2023-04-21] MEDS: Metoprolol Tartrate 25 MG TAB PO SCH (20:39)
[2023-04-21] MEDS: guaiFENesin ER 600 MG TAB PO SCH (20:39)
[2023-04-21] MEDS: Calcium Carbonate 500 MG ChewTAB PO PRN (20:43)
[2023-04-21] MEDS ORDERED: Vancomycin 1 GM in Premix Bag 1 BAG IVPB SCH (21:00)
[2023-04-22] MEDS: Ipratropium/Albuterol 3 ML NEB NEB SCH ×7 (00:08→22:36)
[2023-04-22] MEDS: Cefepime 1 GM in Sodium Chloride 0.9% 100 ML IVPB SCH ×2 (04:01→16:35)
[2023-04-22 04:06] LABS: Hematocrit 26.9 % (36.0-47.0); Hemoglobin 9.2 g/dL (12.0-16.0); Manual Diff?? YES; Mean Corpuscular HGB CONC 34.2 g/dL (32.0-36.0); Mean Corpuscular Hemoglobin 34.8 pg (27.0-31.0); Mean Corpuscular Volume 101.9 fl (78.0-98.0); Mean Platelet Volume 9.8 fL (7.4-10.4); Platelet Count 154 10x3/uL (130-400); RBC Distribution Width 15.7 % (11.5-14.5); Red Blood Cell (RBC) Count 2.64 mill/uL (4.20-5.40); White Blood Cell (WBC) Count 3.5 10x3/uL (4.8-10.8)
[2023-04-22 04:32] LABS: Anion Gap 12 mmol/L (10-20); BUN (Urea Nitrogen) 20 mg/dL (9.8-20.1); Calc. Creatinine Clearance 61 mL/min (70-130); Calcium 8.5 mg/dL (7.8-10.44); Carbon Dioxide 32 mmol/L (22-29); Chloride 93 mmol/L (98-107); Estimated GFR 54; Glucose 101 mg/dL (70-105); Potassium 4.4 mmol/L (3.5-5.1); Sodium 133 mmol/L (136-145)
[2023-04-22 04:45] LABS: Delete Auto Diff?? YES
[2023-04-22 05:14] LABS: Anisocytosis SLIGHT = 6-15 cells HPF (0-5); Band 1 % (5-11); CellaVision Operator ID LAB.JMM; Hypochromia SLIGHT = 6-15 cells HPF (0-5); Large Platelets 1.9 % (0-5); Lymphocytes 25 % (21-51); Macrocytosis SLIGHT = 6-15 cells HPF (0-5); Monocytes 17 % (0-10); Neutrophil 53 % (42-75); Nucleated RBC (Manual Ct) 6 % (0); Platelet Adequacy Comment Platelets Normal; Smudge Cells 3.9 %; Total Cell Count 103
[2023-04-22] MEDS ORDERED: Furosemide 20 MG/2 ML VIAL SLOW IVP SCH (09:00)
[2023-04-22] MEDS: Metoprolol Tartrate 25 MG TAB PO SCH ×2 (10:00→20:49)
[2023-04-22] MEDS: Saccharomyces boulardii 250 MG CAP PO SCH (10:00)
[2023-04-22] MEDS: Apixaban 5 MG TAB PO SCH ×2 (10:01→20:49)
[2023-04-22] MEDS: guaiFENesin ER 600 MG TAB PO SCH ×2 (10:01→20:49)
[2023-04-22] MEDS: Famotidine/PF 20 mg/2ml Vial SLOW IVP SCH ×2 (10:01→20:49)
[2023-04-22] MEDS: valACYclovir 500 MG TAB PO SCH (10:01)
[2023-04-22 10:03] LABS: SARS-CoV-2 NAA Rapid Test Not Detected (NotDetected)
[2023-04-22] MEDS ORDERED: hydrALAZINE 20 MG/ML VIAL SLOW IVP PRN (12:14)
[2023-04-22] MEDS: Furosemide 20 MG/2 ML VIAL SLOW IVP SCH (15:26)
[2023-04-22] MEDS ORDERED: Amlodipine 10 MG TAB PO SCH (17:11)
[2023-04-22] MEDS: Vancomycin 1.5 GRAM/300 ML BAG 1.5 GM in Premix Bag 1 BAG IVPB SCH (17:31)
[2023-04-22] MEDS: Calcium Carbonate 500 MG ChewTAB PO PRN (20:49)
[2023-04-23] MEDS: Ipratropium/Albuterol 3 ML NEB NEB SCH ×3 (02:58→11:04)
[2023-04-23 04:40] LABS: Hematocrit 25.1 % (36.0-47.0); Hemoglobin 8.7 g/dL (12.0-16.0); Manual Diff?? YES; Mean Corpuscular HGB CONC 34.7 g/dL (32.0-36.0); Mean Corpuscular Hemoglobin 35.5 pg (27.0-31.0); Mean Corpuscular Volume 102.4 fl (78.0-98.0); Mean Platelet Volume 10.2 fL (7.4-10.4); Platelet Count 142 10x3/uL (130-400); RBC Distribution Width 15.6 % (11.5-14.5); Red Blood Cell (RBC) Count 2.45 mill/uL (4.20-5.40); White Blood Cell (WBC) Count 3.8 10x3/uL (4.8-10.8)
[2023-04-23 04:41] LABS: Delete Auto Diff?? YES
[2023-04-23] MEDS: Cefepime 1 GM in Sodium Chloride 0.9% 100 ML IVPB SCH (04:51)
[2023-04-23 05:01] LABS: Anion Gap 12 mmol/L (10-20); BUN (Urea Nitrogen) 20 mg/dL (9.8-20.1); Calc. Creatinine Clearance 63 mL/min (70-130); Calcium 8.2 mg/dL (7.8-10.44); Carbon Dioxide 37 mmol/L (22-29); Chloride 89 mmol/L (98-107); Estimated GFR 56; Glucose 131 mg/dL (70-105); Potassium 4.3 mmol/L (3.5-5.1); Sodium 134 mmol/L (136-145)
[2023-04-23 05:13] LABS: Band 3 % (5-11); CellaVision Operator ID lab.abc; Eosinophils 3 % (0-10); Lymphocytes 17 % (21-51); Macrocytosis SLIGHT = 6-15 cells HPF (0-5); Monocytes 16 % (0-10); Neutrophil 60 % (42-75); Nucleated RBC (Manual Ct) 2 % (0); Platelet Adequacy Comment Platelets Normal; Smudge Cells 5.9 %; Total Cell Count 101
[2023-04-23] MEDS: Furosemide 20 MG/2 ML VIAL SLOW IVP SCH (05:31)
[2023-04-23] MEDS ORDERED: Amlodipine 10 MG TAB PO SCH (09:00)
[2023-04-23] MEDS: Metoprolol Tartrate 25 MG TAB PO SCH (11:02)
[2023-04-23] MEDS: valACYclovir 500 MG TAB PO SCH (11:02)
[2023-04-23] MEDS: guaiFENesin ER 600 MG TAB PO SCH (11:02)
[2023-04-23] MEDS: Saccharomyces boulardii 250 MG CAP PO SCH (11:02)
[2023-04-23] MEDS: Famotidine/PF 20 mg/2ml Vial SLOW IVP SCH ×2 (11:03→11:43)
[2023-04-23] MEDS: Apixaban 5 MG TAB PO SCH (11:03)
[2023-04-23 12:04] VITALS: BP 133/94; TEMP 97.9
== END 2023-04-23 12:15 | disposition home or self-care (01) | DRG 193 ==
LOC: ERS 09:29 → 2NO 12:09
PROVIDERS: ADMIT Family Medicine; ATTEND Internal Medicine
DX: J18.9 Pneumonia, unspecified organism (principal); I50.33 Acute on chronic diastolic (congestive) heart failure; C79.51 Secondary malignant neoplasm of bone; C90.00 Multiple myeloma not having achieved remission; E87.1 Hypo-osmolality and hyponatremia; K52.1 Toxic gastroenteritis and colitis; C79.31 Secondary malignant neoplasm of brain; C78.00 Secondary malignant neoplasm of unspecified lung; I13.0 Hypertensive heart and chronic kidney disease with heart failure and stage 1 through stage 4 chronic kidney disease, or unspecified chronic kidney disease; J45.901 Unspecified asthma with (acute) exacerbation; J44.1 Chronic obstructive pulmonary disease with (acute) exacerbation; E78.00 Pure hypercholesterolemia, unspecified; F31.9 Bipolar disorder, unspecified; F17.210 Nicotine dependence, cigarettes, uncomplicated; M10.9 Gout, unspecified; N18.30 Chronic kidney disease, stage 3 unspecified; E11.22 Type 2 diabetes mellitus with diabetic chronic kidney disease; T45.1X5A Adverse effect of antineoplastic and immunosuppressive drugs, initial encounter; D63.1 Anemia in chronic kidney disease; I08.1 Rheumatic disorders of both mitral and tricuspid valves; I27.20 Pulmonary hypertension, unspecified; Z20.822 Contact with and (suspected) exposure to COVID-19; Z88.0 Allergy status to penicillin; Z99.2 Dependence on renal dialysis; Z98.890 Other specified postprocedural states; Z90.49 Acquired absence of other specified parts of digestive tract; Z90.710 Acquired absence of both cervix and uterus; Z79.51 Long term (current) use of inhaled steroids; Z79.899 Other long term (current) drug therapy; Z79.01 Long term (current) use of anticoagulants
CPT/HCPCS: 36415; 36416; 51701; 70450; 71045; 80048; 80053; 81001; 83605; 83880; 84145; 85025; 87040; 87081; 87324; 87449; 93306; 94640; 94760; 96365; 96367; 96375; J0360; J0456; J0692; J0696; J1815; J1940; J3370; J3490; J7620; P9047; S0028; U0002

== ENCOUNTER 2023-05-15 15:15 | Outpatient (CLI) | payer OTHER | END 2023-05-15 15:16 | disposition home or self-care (01) | LOC: BICRAD 15:15 | PROVIDERS: ATTEND Internal Medicine | DX: R05.9 Cough, unspecified (principal); C79.51 Secondary malignant neoplasm of bone; C90.00 Multiple myeloma not having achieved remission; D45 Polycythemia vera; J90 Pleural effusion, not elsewhere classified | CPT/HCPCS: 36415; 71046; 80053 ==

== ENCOUNTER 2023-07-23 22:11 | Inpatient (IN) | payer OTHER ==
[2023-07-23] MEDS ORDERED: Albuterol 2.5 MG (3 mL) NEB ONE (22:35)
[2023-07-23] MEDS ORDERED: Sodium Chloride 0.9% 100 ML ONE (22:36)
[2023-07-23] MEDS ORDERED: cefTRIAXone (ROCEPHIN) 2 GM VIAL ONE (22:36)
[2023-07-23 22:40] LABS: Actual Bicarbonate (HCO3v) 38.7 mEq/L (22-28); Analyzer IN Cardio ER; Base Excess 5.6 mEq/L (-2.0 to +3.0); Calcium, Ionized (venous) 1.22 mmol/L (1.16-1.32); Chloride (VBG) 88 mmol/L (98-106); Hematocrit-VBG 35 % (36.0-47.0); Potassium (VBG) 5.86 mmol/L (3.70-5.30); Sodium 128 mmol/L (133-146)
[2023-07-23] MEDS ORDERED: Magnesium 2 GM/50 ML(in water) 2 GM in Premix 1 BAG IVPB SCH (22:45)
[2023-07-23 23:03] LABS: #Monocytes 0.5 thou/uL (0.11-0.59); #Neutrophils 6.9 thou/uL (1.40-6.50); %Basophils 0.1 % (0.0-1.0); %Eosinophils 0.1 % (0.0-10.0); %Lymphocytes 5.9 % (21.0-51.0); %Monocytes 5.8 % (0.0-10.0); %Neutrophils 86.5 % (42.0-75.0); Hematocrit 33.3 % (36.0-47.0); Hemoglobin 10.8 g/dL (12.0-16.0); Mean Corpuscular HGB CONC 32.4 g/dL (32.0-36.0); Mean Corpuscular Hemoglobin 35.9 pg (27.0-31.0); Mean Corpuscular Volume 110.6 fl (78.0-98.0); Mean Platelet Volume 12.5 fL (7.4-10.4); Platelet Count 125 10x3/uL (130-400); RBC Distribution Width 15.3 % (11.5-14.5); Red Blood Cell (RBC) Count 3.01 mill/uL (4.20-5.40); White Blood Cell (WBC) Count 7.9 10x3/uL (4.8-10.8)
[2023-07-23 23:06] LABS: pH (venous) 7.112 (7.32-7.43)
[2023-07-23 23:27] LABS: Acetaminophen Less than 10 mcg/mL (10.0-30.0); Alcohol Less than 10.0 mg/dL (Less than 10); Lipase 42 U/L (8-78); Salicylate Less than 8.0 mg/dL (15.0-30.0)
[2023-07-23] MEDS ORDERED: NOREPINEPHRINE 8 MG/250 ML-D5W 250 ML ONE (23:31)
[2023-07-23 23:32] LABS: Troponin I 0.053 ng/mL (< 0.028)
[2023-07-23] MEDS ORDERED: Ketamine In 0.9 % NaCl 50 MG/5 ML SYRINGE ONE (23:32)
[2023-07-23] MEDS ORDERED: Rocuronium Bromide 10 MG/ML (10ML VIAL) ONE (23:34)
[2023-07-23] MEDS ORDERED: Azithromycin 500 MG in Sodium Chloride 0.9% 250 ML 250 ML IVPB SCH (23:45)
[2023-07-23 23:46] LABS: Actual Bicarbonate (HCO3a) 38.9 mEq/L (22-28); Base Excess (BEa) 5.7 mEq/L (-2.0 to +3.0); Calcium, Ionized (arterial) 1.26 mmol/L (1.12-1.30); Carboxyhemoglobin (COHb) 2.3 gm% (0.0-3.0); Hematocrit-ABG 33 % (36.0-47.0); Hemoglobin (Hb) 11.3 g/dL (12.0-16.0); Potassium - ABG Lab 5.84 mmol/L (3.70-5.30)
[2023-07-23 23:49] LABS: Puncture Site RRA
[2023-07-23 23:54] LABS: ALT (SGPT) 10 U/L (8-55); AST (SGOT) 13 U/L (5-34); Albumin 3.4 g/dL (3.5-5.0); Alkaline Phosphatase 67 U/L (40-110); Anion Gap 15 mmol/L (10-20); BUN (Urea Nitrogen) 53 mg/dL (9.8-20.1); Bilirubin, Total 0.6 mg/dL (0.2-1.2); Calc. Creatinine Clearance 0 mL/min (70-130); Calcium 9.2 mg/dL (7.8-10.44); Carbon Dioxide 33 mmol/L (22-29); Chloride 88 mmol/L (98-107); Estimated GFR 24; Globulin 2.8 g/dL (2.4-3.5); Glucose 230 mg/dL (70-105); Protein, Total 6.2 g/dL (6.0-8.3); Sodium 130 mmol/L (136-145)
[2023-07-23 23:57] LABS: Critical Call Chemistry NUR..KLH3@2356; Potassium 6.1 mmol/L (3.5-5.1)
[2023-07-23] MEDS ORDERED: CALCIUM GLUC 1 GM (50 ML) BAG ONE (23:57)
[2023-07-24 00:06] LABS: Actual Bicarbonate (HCO3v) 30.8 mEq/L (22-28); Base Excess 1.1 mEq/L (-2.0 to +3.0); Calcium, Ionized (venous) 1.17 mmol/L (1.16-1.32); Chloride (VBG) 90 mmol/L (98-106); Hematocrit-VBG 35 % (36.0-47.0); Hemoglobin (Hb) 11.9 g/dL (11.7-16.0); Sodium 127 mmol/L (133-146); pH (venous) 7.212 (7.32-7.43)
[2023-07-24] MEDS ORDERED: Albuterol 2.5 MG (3 mL) NEB ONE (00:13)
[2023-07-24] MEDS ORDERED: Vancomycin (BATCH) 1.5 GM in Premix 1 BAG IVPB SCH (00:15)
[2023-07-24 00:25] LABS: Analyzer IN Cardio ER; Base Excess (BEa) 6.4 mEq/L (-2.0 to +3.0); Calcium, Ionized (arterial) 1.26 mmol/L (1.12-1.30); Carboxyhemoglobin (COHb) 1.5 gm% (0.0-3.0); Hematocrit-ABG 32 % (36.0-47.0); O2 Tension (PaO2), arterial 253.4 mmHg (80.0-100.0); Potassium - ABG Lab 5.89 mmol/L (3.70-5.30)
[2023-07-24 00:29] LABS: CO2 Tension 74.4 mmHg (35.0-45.0); Puncture Site RRA
[2023-07-24 01:02] LABS: Amphetamine Not Detected (NotDetected); Barbiturates Screen Not Detected (NotDetected); Benzodiazepine Screen Not Detected (NotDetected); Cocaine Metabolite Screen Not Detected (NotDetected); Methadone Not Detected (NotDetected); Methamphetamine Not Detected (NotDetected); Opiate Screen Not Detected (NotDetected); Oxycodone Screen Not Detected (NotDetected); Phencyclidine (PCP) Not Detected (NotDetected); THC/Cannabinoid Screen Not Detected (NotDetected); Tricyclic Screen Not Detected (NotDetected)
[2023-07-24] MEDS ORDERED: Acetaminophen 325 MG TAB PO PRN (01:15)
[2023-07-24] MEDS ORDERED: Propofol BOLUS 1,000 MG/100 ML VIAL IV PRN (01:15)
[2023-07-24] MEDS ORDERED: Ondansetron PF 4 MG/2 ML Vial IVP PRN (01:15)
[2023-07-24] MEDS ORDERED: Fentanyl BOLUS 250 ML IVPB PRN (01:15)
[2023-07-24] MEDS ORDERED: Ondansetron ODT 4 MG TAB SL PRN (01:15)
[2023-07-24] MEDS ORDERED: DISCONTINUE PREVIOUS NARCOTIC PAIN MEDICATIONS AND BENZODIAZEPINES FS SCH (01:15)
[2023-07-24] MEDS ORDERED: Morphine 2 MG/ML VIAL SLOW IVP PRN (01:15)
[2023-07-24] MEDS ORDERED: Ipratropium/Albuterol 3 ML NEB NEB PRN (01:52)
[2023-07-24] MEDS ORDERED: Insulin Regular 300 UNITS/3 ML VIAL IVP SCH (02:00)
[2023-07-24] MEDS ORDERED: Furosemide 40 MG (4 mL) VIAL SLOW IVP SCH (02:00)
[2023-07-24] MEDS ORDERED: Ipratropium/Albuterol 3 ML NEB EZPAP PRN (02:02)
[2023-07-24] MEDS ORDERED: Albumin 25% 25 GM (100 mL) BOT IVPB SCH (02:30)
[2023-07-24] MEDS: Propofol 1,000 MG/100 ML VIAL IV PRN ×4 (02:40→21:19)
[2023-07-24] MEDS ORDERED: Dextrose 50% Abboject 50 ML SYRINGE SLOW IVP PRN (02:52)
[2023-07-24] MEDS ORDERED: Glucagon 1 MG/ML KIT IM PRN (02:52)
[2023-07-24] MEDS ORDERED: HumaLOG 300 UNITS/3 ML VIAL SC PRN (02:52)
[2023-07-24] MEDS ORDERED: Dextrose 5% in Water 1,000 ML IV PRN (02:52)
[2023-07-24 03:47] LABS: Hematocrit 28.5 % (36.0-47.0); Hemoglobin 9.4 g/dL (12.0-16.0); Mean Corpuscular Hemoglobin 34.8 pg (27.0-31.0); Mean Platelet Volume 11.9 fL (7.4-10.4); RBC Distribution Width 14.7 % (11.5-14.5); White Blood Cell (WBC) Count 4.5 10x3/uL (4.8-10.8)
[2023-07-24 03:56] LABS: Mean Corpuscular Volume 105.6 fl (78.0-98.0); Platelet Count 65 10x3/uL (130-400)
[2023-07-24 03:57] LABS: Delete Auto Diff?? YES; Manual Diff?? YES
[2023-07-24 04:08] LABS: Anion Gap 18 mmol/L (10-20); BUN (Urea Nitrogen) 55 mg/dL (9.8-20.1); Calc. Creatinine Clearance 32 mL/min (70-130); Calcium 9.4 mg/dL (7.8-10.44); Carbon Dioxide 30 mmol/L (22-29); Chloride 87 mmol/L (98-107); Estimated GFR 25; Glucose 257 mg/dL (70-105); Potassium 5.6 mmol/L (3.5-5.1); Sodium 129 mmol/L (136-145)
[2023-07-24 04:19] LABS: Band 26 % (5-11); CellaVision Operator ID LAB.CLH1; Hypochromia SLIGHT = 6-15 cells HPF (0-5); Large Platelets 2.6 % (0-5); Lymphocytes 4 % (21-51); Macrocytosis SLIGHT = 6-15 cells HPF (0-5); Monocytes 4 % (0-10); Neutrophil 65 % (42-75); Platelet Adequacy Comment Platelets Decreased; Polychromasia SLIGHT = 2-3 cells HPF (0-2); Total Cell Count 114
[2023-07-24 04:21] LABS: ALT (SGPT) 9 U/L (8-55); AST (SGOT) 10 U/L (5-34); Albumin 3.5 g/dL (3.5-5.0); Alkaline Phosphatase 52 U/L (40-110); Anion Gap 18 mmol/L (10-20); BUN (Urea Nitrogen) 56 mg/dL (9.8-20.1); Bilirubin, Total 0.6 mg/dL (0.2-1.2); Calc. Creatinine Clearance 32 mL/min (70-130); Calcium 9.3 mg/dL (7.8-10.44); Carbon Dioxide 30 mmol/L (22-29); Chloride 87 mmol/L (98-107); Estimated GFR 25; Globulin 2.4 g/dL (2.4-3.5); Glucose 259 mg/dL (70-105); Magnesium 2.2 mg/dL (1.6-2.6); Phosphorus 2.6 mg/dL (2.3-4.7); Potassium 5.6 mmol/L (3.5-5.1); Protein, Total 5.9 g/dL (6.0-8.3); Sodium 129 mmol/L (136-145)
[2023-07-24 04:28] LABS: Legionella Urinary Ag Negative (Negative); Strep pneumo Urine Ag NEGATIVE (NEGATIVE)
[2023-07-24] MEDS ORDERED: LOKELMA 10 GM PACKET PO SCH (05:30)
[2023-07-24] MEDS: methylPREDNISolone Sod Succ 40 MG VIAL IVP SCH ×4 (06:11→23:41)
[2023-07-24 07:44] LABS: Actual Bicarbonate (HCO3a) 33.5 mEq/L (22-28); Base Excess (BEa) 9.9 mEq/L (-2.0 to +3.0); CO2 Tension 41.5 mmHg (35.0-45.0); Calcium, Ionized (arterial) 1.18 mmol/L (1.12-1.30); Carboxyhemoglobin (COHb) 0.8 gm% (0.0-3.0); Hematocrit-ABG 29 % (36.0-47.0); Hemoglobin (Hb) 9.8 g/dL (12.0-16.0); Potassium - ABG Lab 5.52 mmol/L (3.70-5.30); pH, Arterial 7.525 (7.35-7.45)
[2023-07-24 08:10] LABS: O2 Tension (PaO2), arterial 44.1 mmHg (80.0-100.0)
[2023-07-24 08:11] LABS: ALV-art Gradient 189.225 mmHg (0-20); Puncture Site LRA
[2023-07-24] MEDS: Pantoprazole 40 MG VIAL IVP SCH ×2 (08:47→20:00)
[2023-07-24] MEDS ORDERED: Famotidine/PF 20 mg/2ml Vial SLOW IVP SCH (09:00)
[2023-07-24] MEDS ORDERED: Apixaban 2.5 MG TAB PO SCH (09:00)
[2023-07-24] MEDS ORDERED: Vecuronium 10 MG VIAL IVP PRN (09:25)
[2023-07-24] MEDS: Lorazepam 2 MG/ML VIAL SLOW IVP PRN (09:48)
[2023-07-24] MEDS: Ipratropium/Albuterol 3 ML NEB NEB SCH ×5 (11:22→22:35)
[2023-07-24 13:39] LABS: Potassium 5.6 mmol/L (3.5-5.1)
[2023-07-24 14:08] LABS: CO2 Tension 130.6 mmHg (35.0-45.0); O2 Tension (PaO2), arterial 57.1 mmHg (80.0-100.0); pH, Arterial 7.092 (7.35-7.45)
[2023-07-24] MEDS: HumaLOG 300 UNITS/3 ML VIAL SC PRN (15:45)
[2023-07-24] MEDS: Fentanyl CADD 100 ML IV SCH (17:57)
[2023-07-24] MEDS: cefTRIAXone\\ROCEPHIN 2 GM in Sodium Chloride 0.9% 100 ML IVPB SCH (22:00)
[2023-07-25] MEDS: Azithromycin 500 MG in Sodium Chloride 0.9% 250 ML 250 ML IVPB SCH (00:46)
[2023-07-25] MEDS: Ipratropium/Albuterol 3 ML NEB NEB SCH ×8 (01:19→22:30)
[2023-07-25] MEDS: Propofol 1,000 MG/100 ML VIAL IV PRN ×4 (01:32→19:32)
[2023-07-25 05:25] LABS: #Monocytes 0.1 thou/uL (0.11-0.59); #Neutrophils 3.5 thou/uL (1.40-6.50); %Lymphocytes 5.4 % (21.0-51.0); %Monocytes 3.6 % (0.0-10.0); %Neutrophils 90.5 % (42.0-75.0); Hematocrit 26.1 % (36.0-47.0); Mean Corpuscular HGB CONC 34.5 g/dL (32.0-36.0); Mean Corpuscular Hemoglobin 35.9 pg (27.0-31.0); Mean Platelet Volume 12.4 fL (7.4-10.4); RBC Distribution Width 15.4 % (11.5-14.5); Red Blood Cell (RBC) Count 2.51 mill/uL (4.20-5.40); White Blood Cell (WBC) Count 3.9 10x3/uL (4.8-10.8)
[2023-07-25 05:31] LABS: Platelet Count 71 10x3/uL (130-400)
[2023-07-25 05:45] LABS: Anion Gap 16 mmol/L (10-20); BUN (Urea Nitrogen) 54 mg/dL (9.8-20.1); Calc. Creatinine Clearance 33 mL/min (70-130); Calcium 8.7 mg/dL (7.8-10.44); Carbon Dioxide 30 mmol/L (22-29); Chloride 88 mmol/L (98-107); Estimated GFR 25; Glucose 156 mg/dL (70-105); Potassium 5.3 mmol/L (3.5-5.1); Sodium 129 mmol/L (136-145)
[2023-07-25] MEDS: Lorazepam 2 MG/ML VIAL SLOW IVP PRN ×2 (05:58→19:32)
[2023-07-25] MEDS: methylPREDNISolone Sod Succ 40 MG VIAL IVP SCH ×3 (06:15→17:51)
[2023-07-25 08:02] LABS: Actual Bicarbonate (HCO3a) 35.1 mEq/L (22-28); Base Excess (BEa) 11.2 mEq/L (-2.0 to +3.0); Calcium, Ionized (arterial) 1.06 mmol/L (1.12-1.30); Carboxyhemoglobin (COHb) 0.3 gm% (0.0-3.0); Hematocrit-ABG 28 % (36.0-47.0); Hemoglobin (Hb) 9.4 g/dL (12.0-16.0); O2 Tension (PaO2), arterial 89.6 mmHg (80.0-100.0); Potassium - ABG Lab 4.86 mmol/L (3.70-5.30)
[2023-07-25 08:17] LABS: Puncture Site LRA
[2023-07-25] MEDS ORDERED: Sodium Chloride 0.9% 1,000 ML IV SCH (09:45)
[2023-07-25] MEDS: Pantoprazole 40 MG VIAL IVP SCH ×2 (09:53→19:33)
[2023-07-25] MEDS: HumaLOG 300 UNITS/3 ML VIAL SC PRN ×2 (11:35→16:55)
[2023-07-25] MEDS: Fentanyl CADD 100 ML IV SCH (11:40)
[2023-07-25] MEDS: cefTRIAXone\\ROCEPHIN 2 GM in Sodium Chloride 0.9% 100 ML IVPB SCH (21:05)
[2023-07-26] MEDS: Ipratropium/Albuterol 3 ML NEB NEB SCH ×8 (00:21→21:29)
[2023-07-26] MEDS: Azithromycin 500 MG in Sodium Chloride 0.9% 250 ML 250 ML IVPB SCH (00:35)
[2023-07-26] MEDS: HumaLOG 300 UNITS/3 ML VIAL SC PRN ×4 (00:35→17:31)
[2023-07-26] MEDS: methylPREDNISolone Sod Succ 40 MG VIAL IVP SCH ×4 (00:35→17:36)
[2023-07-26 04:19] LABS: Anion Gap 18 mmol/L (10-20); BUN (Urea Nitrogen) 54 mg/dL (9.8-20.1); Calc. Creatinine Clearance 34 mL/min (70-130); Calcium 8.1 mg/dL (7.8-10.44); Carbon Dioxide 25 mmol/L (22-29); Chloride 91 mmol/L (98-107); Estimated GFR 26; Glucose 203 mg/dL (70-105); Potassium 5.7 mmol/L (3.5-5.1); Sodium 128 mmol/L (136-145)
[2023-07-26 05:34] LABS: #Monocytes 0.1 thou/uL (0.11-0.59); #Neutrophils 4.4 thou/uL (1.40-6.50); %Lymphocytes 2.8 % (21.0-51.0); %Monocytes 2.6 % (0.0-10.0); Hematocrit 28.8 % (36.0-47.0); Hemoglobin 9.6 g/dL (12.0-16.0); Mean Corpuscular HGB CONC 33.3 g/dL (32.0-36.0); Mean Corpuscular Hemoglobin 34.8 pg (27.0-31.0); Mean Corpuscular Volume 104.3 fl (78.0-98.0); Mean Platelet Volume 12.7 fL (7.4-10.4); RBC Distribution Width 15.6 % (11.5-14.5); Red Blood Cell (RBC) Count 2.76 mill/uL (4.20-5.40); White Blood Cell (WBC) Count 4.7 10x3/uL (4.8-10.8)
[2023-07-26 06:32] LABS: Platelet Count 87 10x3/uL (130-400)
[2023-07-26] MEDS ORDERED: LOKELMA 10 GM PACKET PO SCH ×3 (07:15→17:45)
[2023-07-26 07:26] LABS: Actual Bicarbonate (HCO3a) 33.3 mEq/L (22-28); CO2 Tension 55.7 mmHg (35.0-45.0); Carboxyhemoglobin (COHb) 0.8 gm% (0.0-3.0); Hematocrit-ABG 36 % (36.0-47.0); Hemoglobin (Hb) 12.2 g/dL (12.0-16.0); Potassium - ABG Lab 4.75 mmol/L (3.70-5.30); pH, Arterial 7.395 (7.35-7.45)
[2023-07-26 07:29] LABS: ALV-art Gradient 74.575 mmHg (0-20); Puncture Site LRA
[2023-07-26] MEDS: Fentanyl CADD 100 ML IV SCH (07:37)
[2023-07-26] MEDS: Propofol 1,000 MG/100 ML VIAL IV PRN ×3 (08:33→23:26)
[2023-07-26] MEDS: Pantoprazole 40 MG VIAL IVP SCH ×2 (09:00→22:16)
[2023-07-26] MEDS: cefTRIAXone\\ROCEPHIN 2 GM in Sodium Chloride 0.9% 100 ML IVPB SCH (22:16)
[2023-07-26] MEDS: Lorazepam 2 MG/ML VIAL SLOW IVP PRN (22:31)
[2023-07-27] MEDS: Ipratropium/Albuterol 3 ML NEB NEB SCH ×8 (00:15→21:56)
[2023-07-27] MEDS: Fentanyl CADD 100 ML IV SCH ×2 (00:17→21:14)
[2023-07-27] MEDS: methylPREDNISolone Sod Succ 40 MG VIAL IVP SCH ×5 (00:52→23:17)
[2023-07-27] MEDS: Azithromycin 500 MG in Sodium Chloride 0.9% 250 ML 250 ML IVPB SCH (00:52)
[2023-07-27] MEDS ORDERED: Ipratropium/Albuterol 3 ML NEB ONE ×2 (03:16→03:25)
[2023-07-27] MEDS: Propofol 1,000 MG/100 ML VIAL IV PRN ×2 (07:38→23:15)
[2023-07-27 08:07] LABS: Actual Bicarbonate (HCO3a) 32.9 mEq/L (22-28); Base Excess (BEa) 7.3 mEq/L (-2.0 to +3.0); CO2 Tension 51.1 mmHg (35.0-45.0); Calcium, Ionized (arterial) 1.06 mmol/L (1.12-1.30); Carboxyhemoglobin (COHb) 1.2 gm% (0.0-3.0); Hematocrit-ABG 32 % (36.0-47.0); Hemoglobin (Hb) 10.8 g/dL (12.0-16.0); O2 Tension (PaO2), arterial 94.8 mmHg (80.0-100.0); Potassium - ABG Lab 4.37 mmol/L (3.70-5.30); pH, Arterial 7.426 (7.35-7.45)
[2023-07-27 08:25] LABS: ALV-art Gradient 55.225 mmHg (0-20); Puncture Site LRA
[2023-07-27] MEDS: Pantoprazole 40 MG VIAL IVP SCH ×2 (08:48→21:14)
[2023-07-27 09:12] LABS: #Monocytes 0.3 thou/uL (0.11-0.59); #Neutrophils 5.4 thou/uL (1.40-6.50); %Lymphocytes 4.2 % (21.0-51.0); %Monocytes 4.2 % (0.0-10.0); %Neutrophils 91.1 % (42.0-75.0); Hematocrit 29.1 % (36.0-47.0); Hemoglobin 9.7 g/dL (12.0-16.0); Mean Corpuscular HGB CONC 33.3 g/dL (32.0-36.0); Mean Corpuscular Hemoglobin 34.9 pg (27.0-31.0); Mean Corpuscular Volume 104.7 fl (78.0-98.0); Platelet Count 106 10x3/uL (130-400); RBC Distribution Width 15.4 % (11.5-14.5); Red Blood Cell (RBC) Count 2.78 mill/uL (4.20-5.40); White Blood Cell (WBC) Count 5.9 10x3/uL (4.8-10.8)
[2023-07-27 10:17] LABS: Anion Gap 16 mmol/L (10-20); BUN (Urea Nitrogen) 50 mg/dL (9.8-20.1); Calc. Creatinine Clearance 39 mL/min (70-130); Calcium 7.6 mg/dL (7.8-10.44); Carbon Dioxide 30 mmol/L (22-29); Chloride 93 mmol/L (98-107); Estimated GFR 30; Glucose 170 mg/dL (70-105); Potassium 4.6 mmol/L (3.5-5.1); Sodium 134 mmol/L (136-145)
[2023-07-27] MEDS ORDERED: Furosemide 40 MG (4 mL) VIAL SLOW IVP SCH (11:00)
[2023-07-27] MEDS: HumaLOG 300 UNITS/3 ML VIAL SC PRN ×2 (11:26→18:38)
[2023-07-27] MEDS: Enoxaparin 40 MG (0.4 mL) SYRINGE SC SCH (21:14)
[2023-07-27] MEDS: Lorazepam 2 MG/ML VIAL SLOW IVP PRN (21:38)
[2023-07-27] MEDS: cefTRIAXone\\ROCEPHIN 2 GM in Sodium Chloride 0.9% 100 ML IVPB SCH (21:38)
[2023-07-28] MEDS: Ipratropium/Albuterol 3 ML NEB NEB SCH ×9 (00:42→23:52)
[2023-07-28] MEDS: Azithromycin 500 MG in Sodium Chloride 0.9% 250 ML 250 ML IVPB SCH (02:03)
[2023-07-28 04:15] LABS: #Monocytes 0.2 thou/uL (0.11-0.59); #Neutrophils 5.2 thou/uL (1.40-6.50); %Lymphocytes 2.3 % (21.0-51.0); %Monocytes 4.3 % (0.0-10.0); %Neutrophils 92.9 % (42.0-75.0); Hematocrit 27.3 % (36.0-47.0); Hemoglobin 9.2 g/dL (12.0-16.0); Mean Corpuscular HGB CONC 33.7 g/dL (32.0-36.0); Mean Corpuscular Hemoglobin 35.1 pg (27.0-31.0); Mean Corpuscular Volume 104.2 fl (78.0-98.0); Mean Platelet Volume 11.1 fL (7.4-10.4); RBC Distribution Width 15.1 % (11.5-14.5); Red Blood Cell (RBC) Count 2.62 mill/uL (4.20-5.40); White Blood Cell (WBC) Count 5.6 10x3/uL (4.8-10.8)
[2023-07-28 04:40] LABS: Anion Gap 15 mmol/L (10-20); BUN (Urea Nitrogen) 52 mg/dL (9.8-20.1); Calc. Creatinine Clearance 39 mL/min (70-130); Calcium 7.5 mg/dL (7.8-10.44); Carbon Dioxide 34 mmol/L (22-29); Chloride 92 mmol/L (98-107); Estimated GFR 30; Glucose 193 mg/dL (70-105); Potassium 4.5 mmol/L (3.5-5.1); Sodium 136 mmol/L (136-145)
[2023-07-28 06:05] LABS: Platelet Count 106 10x3/uL (130-400)
[2023-07-28] MEDS: methylPREDNISolone Sod Succ 40 MG VIAL IVP SCH ×3 (06:26→18:25)
[2023-07-28] MEDS: HumaLOG 300 UNITS/3 ML VIAL SC PRN ×2 (06:27→10:15)
[2023-07-28 08:14] LABS: Actual Bicarbonate (HCO3a) 33.7 mEq/L (22-28); Base Excess (BEa) 7.9 mEq/L (-2.0 to +3.0); CO2 Tension 54.2 mmHg (35.0-45.0); Calcium, Ionized (arterial) 1.04 mmol/L (1.12-1.30); Carboxyhemoglobin (COHb) 0.6 gm% (0.0-3.0); Hematocrit-ABG 29 % (36.0-47.0); Hemoglobin (Hb) 9.8 g/dL (12.0-16.0); O2 Tension (PaO2), arterial 126.5 mmHg (80.0-100.0); Potassium - ABG Lab 4.19 mmol/L (3.70-5.30); pH, Arterial 7.412 (7.35-7.45)
[2023-07-28] MEDS: Pantoprazole 40 MG VIAL IVP SCH ×2 (09:39→21:27)
[2023-07-28] MEDS ORDERED: Furosemide 40 MG (4 mL) VIAL SLOW IVP SCH (10:45)
[2023-07-28] MEDS ORDERED: DC Sedation Protocol FS ONE (12:21)
[2023-07-28] MEDS: cefTRIAXone\\ROCEPHIN 2 GM in Sodium Chloride 0.9% 100 ML IVPB SCH (21:26)
[2023-07-28] MEDS: Enoxaparin 40 MG (0.4 mL) SYRINGE SC SCH (21:27)
[2023-07-29] MEDS: methylPREDNISolone Sod Succ 40 MG VIAL IVP SCH ×3 (00:14→21:28)
[2023-07-29] MEDS: Azithromycin 500 MG in Sodium Chloride 0.9% 250 ML 250 ML IVPB SCH (01:34)
[2023-07-29] MEDS: Ipratropium/Albuterol 3 ML NEB NEB SCH ×7 (03:01→22:26)
[2023-07-29 05:00] LABS: #Monocytes 0.3 thou/uL (0.11-0.59); #Neutrophils 6.6 thou/uL (1.40-6.50); %Lymphocytes 2.5 % (21.0-51.0); %Monocytes 4.6 % (0.0-10.0); %Neutrophils 92.6 % (42.0-75.0); Hematocrit 30.6 % (36.0-47.0); Hemoglobin 10.1 g/dL (12.0-16.0); Mean Corpuscular Hemoglobin 34.9 pg (27.0-31.0); Mean Corpuscular Volume 105.9 fl (78.0-98.0); Mean Platelet Volume 11.1 fL (7.4-10.4); Platelet Count 127 10x3/uL (130-400); RBC Distribution Width 15.1 % (11.5-14.5); Red Blood Cell (RBC) Count 2.89 mill/uL (4.20-5.40); White Blood Cell (WBC) Count 7.1 10x3/uL (4.8-10.8)
[2023-07-29 05:11] LABS: Anion Gap 14 mmol/L (10-20); BUN (Urea Nitrogen) 52 mg/dL (9.8-20.1); Calc. Creatinine Clearance 39 mL/min (70-130); Calcium 7.9 mg/dL (7.8-10.44); Carbon Dioxide 34 mmol/L (22-29); Chloride 94 mmol/L (98-107); Estimated GFR 31; Glucose 118 mg/dL (70-105); Potassium 4.3 mmol/L (3.5-5.1); Sodium 138 mmol/L (136-145)
[2023-07-29] MEDS: Pantoprazole 40 MG VIAL IVP SCH ×2 (09:09→21:13)
[2023-07-29] MEDS ORDERED: methylPREDNISolone Sod Succ/PF 125 MG/2 ML VIAL IVP SCH (21:00)
[2023-07-29] MEDS: cefTRIAXone\\ROCEPHIN 2 GM in Sodium Chloride 0.9% 100 ML IVPB SCH (21:14)
[2023-07-29] MEDS: Enoxaparin 40 MG (0.4 mL) SYRINGE SC SCH (21:14)
[2023-07-30] MEDS: Azithromycin 500 MG in Sodium Chloride 0.9% 250 ML 250 ML IVPB SCH (00:05)
[2023-07-30] MEDS: Ipratropium/Albuterol 3 ML NEB NEB SCH ×7 (00:42→22:35)
[2023-07-30 04:24] LABS: #Monocytes 0.4 thou/uL (0.11-0.59); #Neutrophils 5.2 thou/uL (1.40-6.50); %Lymphocytes 3.8 % (21.0-51.0); %Monocytes 6.9 % (0.0-10.0); %Neutrophils 89.1 % (42.0-75.0); Hemoglobin 9.8 g/dL (12.0-16.0); Mean Corpuscular HGB CONC 33.8 g/dL (32.0-36.0); Mean Corpuscular Hemoglobin 36.2 pg (27.0-31.0); Mean Platelet Volume 9.9 fL (7.4-10.4); Platelet Count 124 10x3/uL (130-400); RBC Distribution Width 14.9 % (11.5-14.5); Red Blood Cell (RBC) Count 2.71 mill/uL (4.20-5.40); White Blood Cell (WBC) Count 5.8 10x3/uL (4.8-10.8)
[2023-07-30 04:45] LABS: Anion Gap 14 mmol/L (10-20); BUN (Urea Nitrogen) 45 mg/dL (9.8-20.1); Calc. Creatinine Clearance 43 mL/min (70-130); Calcium 7.8 mg/dL (7.8-10.44); Carbon Dioxide 34 mmol/L (22-29); Chloride 96 mmol/L (98-107); Estimated GFR 35; Glucose 105 mg/dL (70-105); Potassium 4.1 mmol/L (3.5-5.1); Sodium 140 mmol/L (136-145)
[2023-07-30] MEDS ORDERED: Ipratropium/Albuterol 3 ML NEB NEB SCH (07:15)
[2023-07-30] MEDS: methylPREDNISolone Sod Succ 40 MG VIAL IVP SCH ×2 (08:34→20:24)
[2023-07-30] MEDS: Pantoprazole 40 MG VIAL IVP SCH ×2 (08:34→20:24)
[2023-07-30] MEDS: dilTIAZem 25 MG/5 ML VIAL SLOW IVP SCH ×2 (10:42→10:54)
[2023-07-30] MEDS: dilTIAZem 125 MG, Admixture Fee 1 EACH in Sodium Chloride 0.9% 100 ML IVPB SCH ×2 (11:26→23:12)
[2023-07-30] MEDS ORDERED: Amiodarone 450 MG in Dextrose 5% in Water 250 ML IVPB SCH ×2 (14:45→15:15)
[2023-07-30] MEDS ORDERED: Amiodarone 150 MG, Admixture Fee 1 EACH in Dextrose 5% in Water 100 ML IVPB SCH ×2 (15:00→15:15)
[2023-07-30] MEDS ORDERED: Amiodarone 450 MG, Admixture Fee 1 EACH in Dextrose 5% in Water 250 ML IVPB SCH (15:00)
[2023-07-30] MEDS ORDERED: Metoprolol Tartrate 5 MG (5 mL) VIAL IVP SCH (15:15)
[2023-07-30] MEDS ORDERED: Metoprolol Tartrate 50 MG TAB PO SCH (15:15)
[2023-07-30] MEDS ORDERED: Metoprolol Tartrate 25 MG TAB PO SCH (15:15)
[2023-07-30 16:53] LABS: INR-International Normal Ratio 1.1; PTT 23.4 sec (22.9-36.1); Prothrombin Time 14.6 sec (12.0-14.7)
[2023-07-30] MEDS: Metoprolol Tartrate 25 MG TAB PO SCH (20:24)
[2023-07-30] MEDS: Apixaban 5 MG TAB PO SCH (20:24)
[2023-07-30] MEDS ORDERED: Ondansetron ODT 8 MG TAB SL PRN (22:41)
[2023-07-30] MEDS ORDERED: Ondansetron PF 4 MG/2 ML Vial IVP PRN (22:41)
[2023-07-31] MEDS: Ipratropium/Albuterol 3 ML NEB NEB SCH ×6 (02:46→22:06)
[2023-07-31] MEDS: HumaLOG 300 UNITS/3 ML VIAL SC PRN ×3 (04:25→15:53)
[2023-07-31 04:46] LABS: #Monocytes 0.3 thou/uL (0.11-0.59); #Neutrophils 4.7 thou/uL (1.40-6.50); %Lymphocytes 3.7 % (21.0-51.0); %Neutrophils 90.9 % (42.0-75.0); Hematocrit 31.1 % (36.0-47.0); Hemoglobin 10.3 g/dL (12.0-16.0); Mean Corpuscular HGB CONC 33.1 g/dL (32.0-36.0); Mean Corpuscular Hemoglobin 34.9 pg (27.0-31.0); Mean Corpuscular Volume 105.4 fl (78.0-98.0); Mean Platelet Volume 10.3 fL (7.4-10.4); Platelet Count 128 10x3/uL (130-400); RBC Distribution Width 14.5 % (11.5-14.5); Red Blood Cell (RBC) Count 2.95 mill/uL (4.20-5.40); White Blood Cell (WBC) Count 5.2 10x3/uL (4.8-10.8)
[2023-07-31 05:13] LABS: Anion Gap 14 mmol/L (10-20); BUN (Urea Nitrogen) 39 mg/dL (9.8-20.1); Calc. Creatinine Clearance 0 mL/min (70-130); Calcium 7.6 mg/dL (7.8-10.44); Carbon Dioxide 34 mmol/L (22-29); Chloride 96 mmol/L (98-107); Estimated GFR 34; Glucose 211 mg/dL (70-105); Potassium 4.3 mmol/L (3.5-5.1); Sodium 140 mmol/L (136-145)
[2023-07-31] MEDS: Pantoprazole 40 MG VIAL IVP SCH ×2 (07:55→20:19)
[2023-07-31] MEDS: Apixaban 5 MG TAB PO SCH ×2 (07:55→20:19)
[2023-07-31] MEDS: methylPREDNISolone Sod Succ 40 MG VIAL IVP SCH ×2 (07:55→20:19)
[2023-07-31] MEDS: Metoprolol Tartrate 25 MG TAB PO SCH ×2 (07:55→20:19)
[2023-07-31] MEDS: dilTIAZem 125 MG, Admixture Fee 1 EACH in Sodium Chloride 0.9% 100 ML IVPB SCH (14:15)
[2023-08-01] MEDS: dilTIAZem 125 MG, Admixture Fee 1 EACH in Sodium Chloride 0.9% 100 ML IVPB SCH ×2 (00:28→06:51)
[2023-08-01] MEDS: Ipratropium/Albuterol 3 ML NEB NEB SCH ×6 (02:49→21:55)
[2023-08-01 06:04] LABS: #Monocytes 0.3 thou/uL (0.11-0.59); #Neutrophils 3.6 thou/uL (1.40-6.50); %Lymphocytes 4.4 % (21.0-51.0); %Monocytes 6.8 % (0.0-10.0); %Neutrophils 88.1 % (42.0-75.0); Hematocrit 29.4 % (36.0-47.0); Hemoglobin 9.9 g/dL (12.0-16.0); Mean Corpuscular HGB CONC 33.7 g/dL (32.0-36.0); Mean Corpuscular Hemoglobin 35.6 pg (27.0-31.0); Mean Corpuscular Volume 105.8 fl (78.0-98.0); Mean Platelet Volume 10.2 fL (7.4-10.4); Platelet Count 126 10x3/uL (130-400); RBC Distribution Width 14.4 % (11.5-14.5); Red Blood Cell (RBC) Count 2.78 mill/uL (4.20-5.40); White Blood Cell (WBC) Count 4.1 10x3/uL (4.8-10.8)
[2023-08-01 06:08] LABS: Anion Gap 13 mmol/L (10-20); BUN (Urea Nitrogen) 39 mg/dL (9.8-20.1); Calc. Creatinine Clearance 43 mL/min (70-130); Calcium 7.6 mg/dL (7.8-10.44); Carbon Dioxide 33 mmol/L (22-29); Chloride 97 mmol/L (98-107); Estimated GFR 34; Glucose 225 mg/dL (70-105); Potassium 4.3 mmol/L (3.5-5.1); Sodium 139 mmol/L (136-145)
[2023-08-01] MEDS: HumaLOG 300 UNITS/3 ML VIAL SC PRN ×3 (06:23→18:14)
[2023-08-01] MEDS: methylPREDNISolone Sod Succ 40 MG VIAL IVP SCH ×2 (09:34→21:11)
[2023-08-01] MEDS: Apixaban 5 MG TAB PO SCH ×2 (09:36→21:10)
[2023-08-01] MEDS: Metoprolol Tartrate 25 MG TAB PO SCH ×2 (09:36→21:10)
[2023-08-01] MEDS: Pantoprazole 40 MG VIAL IVP SCH ×2 (09:36→21:10)
[2023-08-01 13:56] VITALS: BMI 31.1
[2023-08-02] MEDS: Ipratropium/Albuterol 3 ML NEB NEB SCH ×4 (02:06→14:06)
[2023-08-02 05:05] LABS: #Monocytes 0.2 thou/uL (0.11-0.59); #Neutrophils 2.4 thou/uL (1.40-6.50); %Lymphocytes 5.4 % (21.0-51.0); %Monocytes 7.5 % (0.0-10.0); %Neutrophils 86.7 % (42.0-75.0); Hematocrit 28.6 % (36.0-47.0); Hemoglobin 9.7 g/dL (12.0-16.0); Mean Corpuscular HGB CONC 33.9 g/dL (32.0-36.0); Mean Corpuscular Hemoglobin 35.7 pg (27.0-31.0); Mean Corpuscular Volume 105.1 fl (78.0-98.0); Mean Platelet Volume 9.8 fL (7.4-10.4); Platelet Count 113 10x3/uL (130-400); RBC Distribution Width 14.4 % (11.5-14.5); Red Blood Cell (RBC) Count 2.72 mill/uL (4.20-5.40); White Blood Cell (WBC) Count 2.8 10x3/uL (4.8-10.8)
[2023-08-02 05:16] LABS: Anion Gap 10 mmol/L (10-20); BUN (Urea Nitrogen) 40 mg/dL (9.8-20.1); Calc. Creatinine Clearance 41 mL/min (70-130); Calcium 7.7 mg/dL (7.8-10.44); Carbon Dioxide 36 mmol/L (22-29); Chloride 96 mmol/L (98-107); Estimated GFR 32; Glucose 210 mg/dL (70-105); Potassium 4.6 mmol/L (3.5-5.1); Sodium 137 mmol/L (136-145)
[2023-08-02] MEDS: HumaLOG 300 UNITS/3 ML VIAL SC PRN (07:35)
[2023-08-02] MEDS: Metoprolol Tartrate 25 MG TAB PO SCH (09:56)
[2023-08-02] MEDS: Pantoprazole 40 MG VIAL IVP SCH (09:56)
[2023-08-02] MEDS: Apixaban 5 MG TAB PO SCH (09:56)
[2023-08-02] MEDS: methylPREDNISolone Sod Succ 40 MG VIAL IVP SCH (09:56)
[2023-08-02 12:15] VITALS: BP 168/84; TEMP 98.1
[2023-08-02 12:57] LABS: Potassium (VBG) 6.17 mmol/L (3.70-5.30)
== END 2023-08-02 01:30 | disposition home or self-care (01) | DRG 207 ==
LOC: ERS 22:11 → CCU 07-24 01:11 → 2NO 07-31 20:02
PROVIDERS: ADMIT Internal Medicine; ATTEND Internal Medicine
PROC: 3E033XZ Introduction of Vasopressor into Peripheral Vein, Percutaneous Approach (ICD-10-PCS; 2023-07-23)
PROC: 0T9B70Z Drainage of Bladder with Drainage Device, Via Natural or Artificial Opening (ICD-10-PCS; principal; 2023-07-24)
PROC: 5A1955Z Respiratory Ventilation, Greater than 96 Consecutive Hours (ICD-10-PCS; 2023-07-24)
PROC: 0DH67UZ Insertion of Feeding Device into Stomach, Via Natural or Artificial Opening (ICD-10-PCS; 2023-07-24)
PROC: 0BH17EZ Insertion of Endotracheal Airway into Trachea, Via Natural or Artificial Opening (ICD-10-PCS; 2023-07-24)
PROC: 4A133R1 Monitoring of Arterial Saturation, Peripheral, Percutaneous Approach (ICD-10-PCS; 2023-07-24)
PROC: 5A0935A Assistance with Respiratory Ventilation, Less than 24 Consecutive Hours, High Flow/Velocity Cannula (ICD-10-PCS; 2023-07-28)
DX: J18.9 Pneumonia, unspecified organism (principal); I50.33 Acute on chronic diastolic (congestive) heart failure; J96.21 Acute and chronic respiratory failure with hypoxia; J96.22 Acute and chronic respiratory failure with hypercapnia; J44.1 Chronic obstructive pulmonary disease with (acute) exacerbation; I13.0 Hypertensive heart and chronic kidney disease with heart failure and stage 1 through stage 4 chronic kidney disease, or unspecified chronic kidney disease; N17.9 Acute kidney failure, unspecified; C90.00 Multiple myeloma not having achieved remission; E87.1 Hypo-osmolality and hyponatremia; J44.0 Chronic obstructive pulmonary disease with (acute) lower respiratory infection; E87.29 Other acidosis; I48.92 Unspecified atrial flutter; Z88.0 Allergy status to penicillin; Z79.899 Other long term (current) drug therapy; E78.00 Pure hypercholesterolemia, unspecified; Z90.49 Acquired absence of other specified parts of digestive tract; Z90.710 Acquired absence of both cervix and uterus; F31.9 Bipolar disorder, unspecified; F17.210 Nicotine dependence, cigarettes, uncomplicated; N18.30 Chronic kidney disease, stage 3 unspecified; E11.22 Type 2 diabetes mellitus with diabetic chronic kidney disease; Z82.49 Family history of ischemic heart disease and other diseases of the circulatory system; E87.5 Hyperkalemia; Z79.4 Long term (current) use of insulin; I27.20 Pulmonary hypertension, unspecified; D69.59 Other secondary thrombocytopenia; I48.0 Paroxysmal atrial fibrillation
CPT/HCPCS: 31500; 36415; 36416; 36600; 51702; 71045; 80048; 80306; 80307; 82805; 83605; 83690; 83735; 83880; 84100; 84484; 85025; 85610; 85730; 87040; 87070; 87205; 87449; 87899; 93005; 93010; 94002; 94003; 94640; 94644; 94660; 96365; 96367; 96368; 96375; C9113; J0456; J0613; J0696; J1650; J1815; J1940; J2060; J2704; J2920; J3010; J3370; J3475; J3490; J7050; J7611; J7620; P9047

== ENCOUNTER 2023-08-22 09:11 | Day surgery (SDC) | payer OTHER ==
[~2023-08-22 09:11] MED LIST: Acetaminophen 500 MG TAB PO SCH; diphenhydrAMINE 25 MG CAP PO SCH
[2023-08-22 13:31] VITALS: BP 124/61; TEMP 98
== END 2023-08-22 13:00 | disposition home or self-care (01) ==
LOC: ONC/OP 09:11
PROVIDERS: ATTEND Internal Medicine
DX: D64.9 Anemia, unspecified (principal); D69.6 Thrombocytopenia, unspecified; Z88.0 Allergy status to penicillin
CPT/HCPCS: 36430; 86850; 86900; 86901; P9016

== ENCOUNTER 2023-09-12 16:15 | Inpatient (IN) | payer OTHER ==
[2023-09-12 16:55] LABS: #Monocytes 0.4 thou/uL (0.11-0.59); #Neutrophils 5.5 thou/uL (1.40-6.50); %Basophils 0.3 % (0.0-1.0); %Eosinophils 0.4 % (0.0-10.0); %Lymphocytes 12.7 % (21.0-51.0); %Monocytes 5.4 % (0.0-10.0); %Neutrophils 80.9 % (42.0-75.0); Hematocrit 20.5 % (36.0-47.0); Hemoglobin 7.1 g/dL (12.0-16.0); Mean Corpuscular HGB CONC 34.6 g/dL (32.0-36.0); Mean Corpuscular Volume 98.1 fl (78.0-98.0); Mean Platelet Volume 9.7 fL (7.4-10.4); Platelet Count 186 10x3/uL (130-400); RBC Distribution Width 15.1 % (11.5-14.5); Red Blood Cell (RBC) Count 2.09 mill/uL (4.20-5.40); White Blood Cell (WBC) Count 6.8 10x3/uL (4.8-10.8)
[2023-09-12 17:09] LABS: INR-International Normal Ratio 1.6; PTT 46.3 sec (22.9-36.1); Prothrombin Time 19.1 sec (12.0-14.7)
[2023-09-12 17:24] LABS: ALT (SGPT) 9 U/L (8-55); AST (SGOT) 11 U/L (5-34); Albumin 1.9 g/dL (3.5-5.0); Alkaline Phosphatase 94 U/L (40-110); Anion Gap 20 mmol/L (10-20); BUN (Urea Nitrogen) 90 mg/dL (9.8-20.1); Bilirubin, Total 0.4 mg/dL (0.2-1.2); Calc. Creatinine Clearance 0 mL/min (70-130); Calcium 7.4 mg/dL (7.8-10.44); Carbon Dioxide 10 mmol/L (22-29); Chloride 96 mmol/L (98-107); Estimated GFR 7; Globulin 5.2 g/dL (2.4-3.5); Glucose 105 mg/dL (70-105); Lipase 21 U/L (8-78); Potassium 4.9 mmol/L (3.5-5.1); Protein, Total 7.1 g/dL (6.0-8.3); Sodium 121 mmol/L (136-145)
[2023-09-12 17:25] LABS: Troponin I 0.076 ng/mL (< 0.028)
[2023-09-12] MEDS ORDERED: Acetaminophen 325 MG TAB PO PRN (18:14)
[2023-09-12] MEDS ORDERED: Acetaminophen 650 MG Suppository PR PRN (18:14)
[2023-09-12 18:54] LABS: Iron 77 ug/dL (50-170); Iron Binding Capacity, Total 63 mcg/dL (265-497)
[2023-09-12 19:20] LABS: Ferritin 649.53 ng/mL (10-291); Thyroid Stimulating Hormone 3.6698 uIU/mL (0.35-4.94)
[2023-09-12 21:12] LABS: Troponin I 0.067 ng/mL (< 0.028)
[2023-09-12] MEDS ORDERED: HYDROcodone/Acetaminophen 5/325 mg Tablet PO PRN (22:13)
[2023-09-12 22:19] LABS: Bilirubin Negative (Negative); Blood, Urine Negative (Negative); CAUTI Indications for Culture Dysuria,urgency,freq; Clarity Clear (Clear); Glucose, Urine (Dipstick) Normal (Negative); Ketone, Urine Negative (Negative); Leukocyte 75 Leu/uL (Negative); Nitrite Negative (Negative); Protein, Urine (Dipstick) 20 mg/dL (Neg-Trace); RBC/HPF 0-3 HPF (0-3); Specific Gravity, Urine 1.009 (1.002-1.036); Squamous Epithelial 0-3 HPF (0-3); Urobilinogen Normal mg/dL (Less than 2)
[2023-09-12 22:20] LABS: Bacteria/HPF 1+ HPF (None Seen)
[2023-09-12 22:21] LABS: Urine Culture Reflex No No
[2023-09-12 22:31] VITALS: BMI 24.0
[2023-09-12 22:41] LABS: Creatinine, Urine 57.29 mg/dL (47-110); Sodium, Urine Less than 20 mmol/L (Not Available); Urea Nitrogen, Random Urine 255 mg/dl
[2023-09-12] MEDS: Calcium Carbonate 600 MG TAB PO SCH (22:44)
[2023-09-12] MEDS: Melatonin 3 MG TAB PO SCH (22:44)
[2023-09-12] MEDS: Sodium Bicarb 50 mEq/50 ML VIAL IVP SCH (23:15)
[2023-09-12 23:25] LABS: Troponin I 0.079 ng/mL (< 0.028)
[2023-09-13] MEDS: Albumin 25% 25 GM (100 mL) BOT IVPB SCH (02:07)
[2023-09-13] MEDS: Furosemide 40 MG (4 mL) VIAL SLOW IVP SCH ×2 (02:08→11:44)
[2023-09-13] MEDS ORDERED: Dextrose 5% in Water 1,000 ML IV PRN (02:17)
[2023-09-13] MEDS ORDERED: Glucagon 1 MG/ML KIT IM PRN (02:17)
[2023-09-13] MEDS ORDERED: Dextrose 50% Abboject 50 ML SYRINGE SLOW IVP PRN (02:17)
[2023-09-13] MEDS: Midodrine HCl 5 MG TAB PO SCH (02:29)
[2023-09-13 04:37] LABS: #Eosinphils 0.1 thou/uL (0.0-0.7); #Monocytes 0.3 thou/uL (0.11-0.59); #Neutrophils 4.2 thou/uL (1.40-6.50); %Basophils 0.4 % (0.0-1.0); %Lymphocytes 11.7 % (21.0-51.0); %Monocytes 5.8 % (0.0-10.0); %Neutrophils 80.9 % (42.0-75.0); Hematocrit 26.2 % (36.0-47.0); Hemoglobin 9.2 g/dL (12.0-16.0); Mean Corpuscular HGB CONC 35.1 g/dL (32.0-36.0); Mean Corpuscular Hemoglobin 32.1 pg (27.0-31.0); Mean Platelet Volume 9.6 fL (7.4-10.4); Platelet Count 132 10x3/uL (130-400); Red Blood Cell (RBC) Count 2.87 mill/uL (4.20-5.40); White Blood Cell (WBC) Count 5.2 10x3/uL (4.8-10.8)
[2023-09-13 04:53] LABS: Mean Corpuscular Volume 91.3 fl (78.0-98.0)
[2023-09-13 05:05] LABS: Anion Gap 23 mmol/L (10-20); BUN (Urea Nitrogen) 87 mg/dL (9.8-20.1); Calc. Creatinine Clearance 10 mL/min (70-130); Calcium 7.1 mg/dL (7.8-10.44); Carbon Dioxide 11 mmol/L (22-29); Chloride 97 mmol/L (98-107); Estimated GFR 8; Glucose 68 mg/dL (70-105); Potassium 4.9 mmol/L (3.5-5.1); Sodium 126 mmol/L (136-145)
[2023-09-13] MEDS: OLANZapine 5 MG TAB PO SCH (08:48)
[2023-09-13] MEDS: Multivit, Therapeutic 1 TAB PO SCH (08:48)
[2023-09-14 08:25] LABS: Anion Gap 22 mmol/L (10-20); BUN (Urea Nitrogen) 94 mg/dL (9.8-20.1); Calc. Creatinine Clearance 10 mL/min (70-130); Calcium 7.2 mg/dL (7.8-10.44); Carbon Dioxide 13 mmol/L (22-29); Chloride 96 mmol/L (98-107); Estimated GFR 7; Glucose 85 mg/dL (70-105); Potassium 5.5 mmol/L (3.5-5.1); Sodium 125 mmol/L (136-145)
[2023-09-14 08:32] LABS: Troponin I 0.092 ng/mL (< 0.028)
[2023-09-14 08:37] LABS: Critical Call Chemistry NUR.LBA AT 0836; Phosphorus 9.2 mg/dL (2.3-4.7)
[2023-09-14] MEDS ORDERED: Tuberculin PPD 0.1 ML VIAL I-DERMAL SCH (11:00)
[2023-09-14 11:40] LABS: #Monocytes 0.4 thou/uL (0.11-0.59); %Basophils 0.4 % (0.0-1.0); %Eosinophils 0.4 % (0.0-10.0); %Lymphocytes 15.2 % (21.0-51.0); %Monocytes 7.6 % (0.0-10.0); Hemoglobin 8.5 g/dL (12.0-16.0); Mean Corpuscular Hemoglobin 31.7 pg (27.0-31.0); Mean Corpuscular Volume 93.3 fl (78.0-98.0); Mean Platelet Volume 9.7 fL (7.4-10.4); Platelet Count 127 10x3/uL (130-400); RBC Distribution Width 17.2 % (11.5-14.5); Red Blood Cell (RBC) Count 2.68 mill/uL (4.20-5.40); White Blood Cell (WBC) Count 5.3 10x3/uL (4.8-10.8)
[2023-09-14 12:07] LABS: HBSAB Concentration Less than 8.00 mIU/mL; Hep B Core Total Ab Non-Reactive (NonReactive); Hep B Core Total Index 0.04 S/CO (0-0.79); Hep B Surf AB Non-Reactive (NonReactive); Hep B Surf Ag Non-Reactive S/CO (NonReactive)
[2023-09-14 12:08] LABS: Hep C IgG Ab Non-Reactive S/CO (NonReactive); Hep C Index 0.03 S/CO (0-0.79)
[2023-09-14] MEDS ORDERED: Acetaminophen 500 MG TAB PO PRN (12:38)
[2023-09-14] MEDS: Tuberculin PPD 0.1 ML VIAL I-DERMAL SCH (13:32)
[2023-09-14] MEDS: Calcium Acetate 667 MG CAP PO SCH (13:32)
[2023-09-15 04:48] LABS: #Monocytes 0.5 thou/uL (0.11-0.59); #Neutrophils 3.6 thou/uL (1.40-6.50); %Basophils 0.4 % (0.0-1.0); %Eosinophils 0.4 % (0.0-10.0); %Lymphocytes 13.5 % (21.0-51.0); %Monocytes 10.1 % (0.0-10.0); %Neutrophils 75.4 % (42.0-75.0); Hematocrit 25.1 % (36.0-47.0); Hemoglobin 8.6 g/dL (12.0-16.0); Mean Corpuscular HGB CONC 34.3 g/dL (32.0-36.0); Mean Corpuscular Hemoglobin 31.7 pg (27.0-31.0); Mean Corpuscular Volume 92.6 fl (78.0-98.0); Mean Platelet Volume 9.5 fL (7.4-10.4); Platelet Count 134 10x3/uL (130-400); Red Blood Cell (RBC) Count 2.71 mill/uL (4.20-5.40); White Blood Cell (WBC) Count 4.7 10x3/uL (4.8-10.8)
[2023-09-15 05:44] LABS: Anion Gap 18 mmol/L (10-20); BUN (Urea Nitrogen) 65 mg/dL (9.8-20.1); Calc. Creatinine Clearance 13 mL/min (70-130); Carbon Dioxide 17 mmol/L (22-29); Chloride 98 mmol/L (98-107); Estimated GFR 11; Glucose 106 mg/dL (70-105); Magnesium 2.9 mg/dL (1.6-2.6); Potassium 4.7 mmol/L (3.5-5.1); Sodium 128 mmol/L (136-145)
[2023-09-15] MEDS ORDERED: Heparin 10,000 UNITS/ 10 ML VIAL ONE (06:54)
[2023-09-15] MEDS ORDERED: Ketamine In 0.9 % NaCl 50 MG/5 ML SYRINGE ONE (08:25)
[2023-09-15] MEDS ORDERED: Vasopressin 20 UNITS/ML VIAL ONE (08:25)
[2023-09-15] MEDS ORDERED: PROPOFOL 20 ML ONE (08:32)
[2023-09-15] MEDS ORDERED: Ondansetron PF 4 MG/2 ML Vial ONE (08:52)
[2023-09-15 09:43] LABS: Phosphorus 5.6 mg/dL (2.3-4.7)
[2023-09-15] MEDS: Nicotine 14 MG PATCH TD SCH ×2 (21:03→21:27)
[2023-09-15] MEDS: Loperamide HCl 2 MG CAP PO PRN (22:36)
[2023-09-16] MEDS: Calcium Carbonate 500 MG ChewTAB PO SCH (00:34)
[2023-09-16] MEDS: Sodium Bicarb 50 mEq/50 ML VIAL IVP SCH (00:34)
[2023-09-16 05:17] LABS: Anion Gap 17 mmol/L (10-20); BUN (Urea Nitrogen) 35 mg/dL (9.8-20.1); Calc. Creatinine Clearance 19 mL/min (70-130); Calcium 7.3 mg/dL (7.8-10.44); Carbon Dioxide 20 mmol/L (22-29); Chloride 99 mmol/L (98-107); Estimated GFR 16; Glucose 117 mg/dL (70-105); Potassium 4.5 mmol/L (3.5-5.1); Sodium 131 mmol/L (136-145)
[2023-09-16 05:56] LABS: #Monocytes 0.6 thou/uL (0.11-0.59); #Neutrophils 3.2 thou/uL (1.40-6.50); %Basophils 0.4 % (0.0-1.0); %Eosinophils 0.9 % (0.0-10.0); %Lymphocytes 16.6 % (21.0-51.0); %Neutrophils 69.7 % (42.0-75.0); Hematocrit 25.7 % (36.0-47.0); Hemoglobin 8.7 g/dL (12.0-16.0); Mean Corpuscular HGB CONC 33.9 g/dL (32.0-36.0); Mean Corpuscular Hemoglobin 31.3 pg (27.0-31.0); Mean Corpuscular Volume 92.4 fl (78.0-98.0); Mean Platelet Volume 9.7 fL (7.4-10.4); Platelet Count 109 10x3/uL (130-400); RBC Distribution Width 16.9 % (11.5-14.5); Red Blood Cell (RBC) Count 2.78 mill/uL (4.20-5.40); White Blood Cell (WBC) Count 4.6 10x3/uL (4.8-10.8)
[2023-09-16] MEDS ORDERED: CEFAZOLIN 2 GM in Sodium Chloride 0.9% 100 ML IVPB SCH (08:00)
[2023-09-16] MEDS: Nicotine 21 MG PATCH TD SCH (08:35)
[2023-09-16] MEDS ORDERED: Heparin 10,000 UNITS/ 10 ML VIAL ONE (09:25)
[2023-09-16] MEDS ORDERED: Bupivacaine PF 0.5% 30 ML VIAL ONE (09:25)
[2023-09-16] MEDS ORDERED: EPINEPHrine 1 MG/ML VIAL ONE (09:25)
[2023-09-16] MEDS ORDERED: Ketamine In 0.9 % NaCl 50 MG/5 ML SYRINGE ONE (09:41)
[2023-09-16] MEDS ORDERED: PROPOFOL 20 ML ONE ×2 (09:41→10:17)
[2023-09-16] MEDS ORDERED: fentaNYL 50 mcg/mL 1 mL Vial ONE (09:42)
[2023-09-16] MEDS ORDERED: Sodium Chloride 0.9% 100 ML ONE (09:47)
[2023-09-16] MEDS ORDERED: CEFAZOLIN 2 GM VIAL ONE (09:47)
[2023-09-16 11:37] LABS: Kappa Lambda Light Chain Ratio 0.01 (0.26-1.65); Kappa Light Chains 24.5 mg/L (3.3-19.4); Lambda Light Chain 2420.1 mg/L (5.7-26.3)
[2023-09-16] MEDS: FLU VACC QS2023-24(6MOS UP)/PF 60 MCG/0.5 ML SYRINGE IM ONE (12:27)
[2023-09-17] MEDS: READ PPD TEST SITE PO SCH (10:21)
[2023-09-17 10:47] LABS: #Monocytes 0.4 thou/uL (0.11-0.59); #Neutrophils 2.9 thou/uL (1.40-6.50); %Basophils 0.5 % (0.0-1.0); %Lymphocytes 12.8 % (21.0-51.0); %Monocytes 9.1 % (0.0-10.0); %Neutrophils 76.3 % (42.0-75.0); Hematocrit 32.4 % (36.0-47.0); Hemoglobin 10.9 g/dL (12.0-16.0); Mean Corpuscular HGB CONC 33.6 g/dL (32.0-36.0); Mean Corpuscular Hemoglobin 31.9 pg (27.0-31.0); Mean Corpuscular Volume 94.7 fl (78.0-98.0); Platelet Count 104 10x3/uL (130-400); RBC Distribution Width 16.9 % (11.5-14.5); Red Blood Cell (RBC) Count 3.42 mill/uL (4.20-5.40); White Blood Cell (WBC) Count 3.8 10x3/uL (4.8-10.8)
[2023-09-17 11:26] LABS: Anion Gap 16 mmol/L (10-20); BUN (Urea Nitrogen) 33 mg/dL (9.8-20.1); Calc. Creatinine Clearance 17 mL/min (70-130); Calcium 7.6 mg/dL (7.8-10.44); Carbon Dioxide 23 mmol/L (22-29); Chloride 97 mmol/L (98-107); Estimated GFR 16; Glucose 129 mg/dL (70-105); Sodium 131 mmol/L (136-145)
[2023-09-17] MEDS: Apixaban 5 MG TAB PO SCH (20:46)
[2023-09-18 06:34] LABS: #Eosinphils 0.1 thou/uL (0.0-0.7); #Monocytes 0.5 thou/uL (0.11-0.59); #Neutrophils 4.5 thou/uL (1.40-6.50); %Basophils 0.3 % (0.0-1.0); %Lymphocytes 13.9 % (21.0-51.0); %Monocytes 8.9 % (0.0-10.0); %Neutrophils 75.4 % (42.0-75.0); Hematocrit 23.6 % (36.0-47.0); Mean Corpuscular HGB CONC 33.5 g/dL (32.0-36.0); Mean Corpuscular Hemoglobin 31.7 pg (27.0-31.0); Mean Corpuscular Volume 94.8 fl (78.0-98.0); Mean Platelet Volume 9.9 fL (7.4-10.4); Platelet Count 100 10x3/uL (130-400); RBC Distribution Width 16.6 % (11.5-14.5); Red Blood Cell (RBC) Count 2.49 mill/uL (4.20-5.40)
[2023-09-18 06:36] LABS: Hemoglobin 7.9 g/dL (12.0-16.0)
[2023-09-18 06:42] LABS: Anion Gap 15 mmol/L (10-20); BUN (Urea Nitrogen) 40 mg/dL (9.8-20.1); Calc. Creatinine Clearance 18 mL/min (70-130); Carbon Dioxide 24 mmol/L (22-29); Chloride 95 mmol/L (98-107); Estimated GFR 14; Glucose 78 mg/dL (70-105); Potassium 5.8 mmol/L (3.5-5.1); Sodium 128 mmol/L (136-145)
[2023-09-18] MEDS: Nicotine 14 MG PATCH TD PRN (08:05)
[2023-09-18 08:29] VITALS: BP 133/68; TEMP 98.6
== END 2023-09-18 15:10 | disposition home or self-care (01) | DRG 673 ==
LOC: ERS 16:15 → OBSVTOIN 19:30 → 2SW 19:30 → 2SE 09-13 18:37 → T4-A 09-17 20:39
PROVIDERS: ADMIT Internal Medicine; ATTEND Internal Medicine
PROC: 30243N1 Transfusion of Nonautologous Red Blood Cells into Central Vein, Percutaneous Approach (ICD-10-PCS; 2023-09-12)
PROC: 5A1D80Z Performance of Urinary Filtration, Prolonged Intermittent, 6-18 hours Per Day (ICD-10-PCS; 2023-09-14)
PROC: 06HY33Z Insertion of Infusion Device into Lower Vein, Percutaneous Approach (ICD-10-PCS; 2023-09-14)
PROC: 0DB68ZX Excision of Stomach, Via Natural or Artificial Opening Endoscopic, Diagnostic (ICD-10-PCS; 2023-09-15)
PROC: 0JH63XZ Insertion of Tunneled Vascular Access Device into Chest Subcutaneous Tissue and Fascia, Percutaneous Approach (ICD-10-PCS; principal; 2023-09-16)
PROC: 05HM33Z Insertion of Infusion Device into Right Internal Jugular Vein, Percutaneous Approach (ICD-10-PCS; 2023-09-16)
PROC: B5131ZA Fluoroscopy of Right Jugular Veins using Low Osmolar Contrast, Guidance (ICD-10-PCS; 2023-09-16)
DX: N17.9 Acute kidney failure, unspecified (principal); I21.A1 Myocardial infarction type 2; C90.00 Multiple myeloma not having achieved remission; E87.1 Hypo-osmolality and hyponatremia; E87.20 Acidosis, unspecified; I13.0 Hypertensive heart and chronic kidney disease with heart failure and stage 1 through stage 4 chronic kidney disease, or unspecified chronic kidney disease; I50.32 Chronic diastolic (congestive) heart failure; K52.1 Toxic gastroenteritis and colitis; E44.0 Moderate protein-calorie malnutrition; N18.6 End stage renal disease; F31.9 Bipolar disorder, unspecified; E11.22 Type 2 diabetes mellitus with diabetic chronic kidney disease; F17.210 Nicotine dependence, cigarettes, uncomplicated; E78.5 Hyperlipidemia, unspecified; D63.1 Anemia in chronic kidney disease; N18.32 Chronic kidney disease, stage 3b; I48.0 Paroxysmal atrial fibrillation; J44.9 Chronic obstructive pulmonary disease, unspecified; E83.51 Hypocalcemia; E88.09 Other disorders of plasma-protein metabolism, not elsewhere classified; T45.1X5A Adverse effect of antineoplastic and immunosuppressive drugs, initial encounter; E87.5 Hyperkalemia; K29.70 Gastritis, unspecified, without bleeding; K29.80 Duodenitis without bleeding; E83.39 Other disorders of phosphorus metabolism; K21.9 Gastro-esophageal reflux disease without esophagitis; Z90.49 Acquired absence of other specified parts of digestive tract; Z99.2 Dependence on renal dialysis; Z79.01 Long term (current) use of anticoagulants; Z98.42 Cataract extraction status, left eye; Z98.41 Cataract extraction status, right eye; Z90.710 Acquired absence of both cervix and uterus; Z68.25 Body mass index [BMI] 25.0-25.9, adult
CPT/HCPCS: 36415; 36416; 36430; 71045; 80048; 80053; 80069; 81001; 82274; 82570; 82607; 82728; 83540; 83550; 83605; 83690; 83735; 83880; 83883; 83935; 84100; 84145; 84300; 84443; 84484; 84540; 85025; 85610; 85730; 86580; 86704; 86850; 86900; 86901; 88305; 93005; 96374; 97139; A6258; C1750; C1751; J0171; J0665; J1642; J1644; J1940; J2405; J2704; J3010; J3490; P9016; P9047

== ENCOUNTER 2023-09-26 | Inpatient (IN) | payer OTHER | END 2023-09-27 17:50 | disposition E | DRG 871 | PROVIDERS: ADMIT Student in an Organized Health Care Education/Training Program | PROC: 5A1D70Z Performance of Urinary Filtration, Intermittent, Less than 6 Hours Per Day (ICD-10-PCS; principal; 2023-09-26) | PROC: 30233N1 Transfusion of Nonautologous Red Blood Cells into Peripheral Vein, Percutaneous Approach (ICD-10-PCS; 2023-09-26) | PROC: 30233J1 Transfusion of Nonautologous Serum Albumin into Peripheral Vein, Percutaneous Approach (ICD-10-PCS; 2023-09-26) | PROC: 3E033XZ Introduction of Vasopressor into Peripheral Vein, Percutaneous Approach (ICD-10-PCS; 2023-09-26) | PROC: 06HY33Z Insertion of Infusion Device into Lower Vein, Percutaneous Approach (ICD-10-PCS; 2023-09-27) | PROC: 3E03329 Introduction of Other Anti-infective into Peripheral Vein, Percutaneous Approach (ICD-10-PCS; 2023-09-27) | DX: A41.52 Sepsis due to Pseudomonas (principal); D61.810 Antineoplastic chemotherapy induced pancytopenia; N18.6 End stage renal disease; R65.21 Severe sepsis with septic shock; C90.00 Multiple myeloma not having achieved remission; I50.32 Chronic diastolic (congestive) heart failure; E87.20 Acidosis, unspecified; E44.0 Moderate protein-calorie malnutrition; I82.411 Acute embolism and thrombosis of right femoral vein; D68.9 Coagulation defect, unspecified; N39.0 Urinary tract infection, site not specified; I13.2 Hypertensive heart and chronic kidney disease with heart failure and with stage 5 chronic kidney disease, or end stage renal disease; D84.821 Immunodeficiency due to drugs; N17.9 Acute kidney failure, unspecified; Z66 Do not resuscitate; Z51.5 Encounter for palliative care; K29.70 Gastritis, unspecified, without bleeding; K29.80 Duodenitis without bleeding; Z99.2 Dependence on renal dialysis; T45.1X5A Adverse effect of antineoplastic and immunosuppressive drugs, initial encounter; Z88.0 Allergy status to penicillin; D63.1 Anemia in chronic kidney disease; E11.22 Type 2 diabetes mellitus with diabetic chronic kidney disease; J44.9 Chronic obstructive pulmonary disease, unspecified; F31.9 Bipolar disorder, unspecified; K21.9 Gastro-esophageal reflux disease without esophagitis; F17.210 Nicotine dependence, cigarettes, uncomplicated; I48.91 Unspecified atrial fibrillation; E78.00 Pure hypercholesterolemia, unspecified; E87.6 Hypokalemia; E86.1 Hypovolemia; R53.81 Other malaise; Z68.27 Body mass index [BMI] 27.0-27.9, adult; Z79.899 Other long term (current) drug therapy; Z98.890 Other specified postprocedural states; Z90.710 Acquired absence of both cervix and uterus; Z90.49 Acquired absence of other specified parts of digestive tract; Z55.6 Problems related to health literacy; Z98.41 Cataract extraction status, right eye; Z98.42 Cataract extraction status, left eye; Z71.6 Tobacco abuse counseling; Z99.3 Dependence on wheelchair; I08.1 Rheumatic disorders of both mitral and tricuspid valves ==